=== PATIENT | female | born 1970 | race Caucasian/White ===

== ENCOUNTER → 2019-11-02 08:42 | Outpatient (BNVA) | payer SELFPAY | PROVIDERS: Visit Provider Nurse Practitioner Family | DX: I10 Essential (primary) hypertension (principal) | CPT/HCPCS: 36415; 85025 ==

== ENCOUNTER → 2019-11-02 10:17 | Outpatient (BNVA) | payer SELFPAY | PROVIDERS: Visit Provider Nurse Practitioner Family | DX: L40.9 Psoriasis, unspecified (principal); I10 Essential (primary) hypertension; E03.9 Hypothyroidism, unspecified; E78.2 Mixed hyperlipidemia; Z79.899 Other long term (current) drug therapy; L40.50 Arthropathic psoriasis, unspecified; E55.9 Vitamin D deficiency, unspecified | CPT/HCPCS: 80053; 80061; 82306; 83036; 84443 ==

== ENCOUNTER → 2020-04-22 15:04 | Outpatient (BNVA) | payer SELFPAY | PROVIDERS: Visit Provider Internal Medicine Rheumatology | DX: L40.0 Psoriasis vulgaris (principal); L40.50 Arthropathic psoriasis, unspecified; M06.09 Rheumatoid arthritis without rheumatoid factor, multiple sites; Z79.899 Other long term (current) drug therapy; L60.8 Other nail disorders | CPT/HCPCS: 99203; 99204 ==

== ENCOUNTER → 2020-04-30 10:13 | Outpatient (BNVA) | payer SELFPAY | PROVIDERS: Visit Provider Internal Medicine Rheumatology | DX: L40.50 Arthropathic psoriasis, unspecified (principal); Z79.899 Other long term (current) drug therapy | CPT/HCPCS: 80076; 82306; 82565; 85025; 85651; 86140; 86431; 86704; 86803; 87340 ==

== ENCOUNTER 2020-05-02 09:18 | Outpatient (CLI) | payer SELFPAY ==
--- NOTE | 2020-05-02 09:45 | XR_ITS ---
WS: [id number] Right hand, 3 views, 05/02/2020 Clinical Data: psoriatic arthritis Comparison: None. Findings: No fractures or dislocations are seen. The soft tissues are unremarkable. The joint space s are normal No periarticular demineralization or calcifications are seen. XR/XR hand RT min 3V* [id number] Impression: Negative right hand.
--- NOTE | 2020-05-02 09:45 | XR_ITS ---
WS: [id number] Right foot, 3 views, 05/02/2020 Clinical Data: psoriatic arthritis Comparison: None. Findings: No fractures or dislocations are seen. No bone destruction or erosion is noted. The joint spaces are normal. There is a small bunion at the head of the right first metatarsal. There is a needle which ramirez s fractured into 2 parts in the subcutaneous tissue of the right foot inferior to the proximal portio n of the fifth metatarsal. No periarticular demineralization or calcifications are seen. There is a p lantar spur. XR/XR foot RT min 3V* [id number] Impression: 1. Needle in the subcutaneous tissue inferior to the base of the right fifth me tatarsal. 2. Bunion at the head of the right first metatarsal.
--- NOTE | 2020-05-02 09:45 | XR_ITS ---
WS: [id number] Left foot, 3 views, 05/02/2020 Clinical Data: psoriatic arthritis Comparison: None. Findings: No fractures or dislocations are seen. No bone destruction or erosion is noted. The soft tissues are normal. There is a bunion at the head of the left first metatarsal. No periarticular demineralization or calc ification is seen. There is a plantar spur. XR/XR foot LT min 3V* [id number] Impression: Bunion at head of left first metatarsal.
--- NOTE | 2020-05-02 09:47 | XR_ITS ---
WS: [id number] Pelvis, AP view, 05/02/2020 Clinical Data: psoriatic arthritis Comparison: None. Findings: No fractures or dislocations are seen. The SI joints and pubic symphysis are intact. The soft tissues are not remarkable. There is degenerative disc narrowing at L4-L5. XR/XR pelvis 1-2V* [id number] Impression: Negative for fracture.
--- NOTE | 2020-05-02 09:47 | XR_ITS ---
WS: [id number] Chest 2 views, 05/02/2020 Clinical Data: psoriatic arthritis Comparison: None. Findings: No nodules, masses or effusions are seen. The heart is normal. The pulmonary vascularity is not increased. No pneumonia or pneumothorax is seen. XR/XR chest 2V* [id number] Impression: Negative chest.
--- NOTE | 2020-05-02 09:47 | XR_ITS ---
WS: [id number] Left hand, 3 views, 05/02/2020 Clinical Data: psoriatic arthritis Comparison: None. Findings: No fractures or dislocations are seen. The soft tissues are unremarkable. The joint spaces are normal No periarticular demineralization or calcifications are seen. There is a small density adjacent to th e ungual tuft of the distal phalanx of the left thumb which may represent a subcutaneous foreign body . XR/XR hand LT min 3V* [id number] Impression: Negative left hand.
== END 2020-05-02 09:19 | disposition home or self-care (01) ==
LOC: RAD 09:21 → RADWPI 09:45
PROVIDERS: Family Provider Nurse Practitioner Family; PCP Nurse Practitioner Family; Visit Provider Internal Medicine Rheumatology
DX: L40.50 Arthropathic psoriasis, unspecified (principal); M21.611 Bunion of right foot; M21.612 Bunion of left foot
CPT/HCPCS: 71046; 72170; 73130; 73630

== ENCOUNTER → 2020-08-14 15:21 | Outpatient (BNVA) | payer SELFPAY | PROVIDERS: Family Provider Nurse Practitioner Family; PCP Nurse Practitioner Family; Visit Provider Internal Medicine Rheumatology | DX: L40.50 Arthropathic psoriasis, unspecified (principal); L40.0 Psoriasis vulgaris; Z79.899 Other long term (current) drug therapy; L60.8 Other nail disorders | CPT/HCPCS: 36415; 80076; 82565; 85025; 85651; 86140; 99214 ==

== ENCOUNTER → 2020-10-13 13:48 | Outpatient (BNVA) | payer SELFPAY | PROVIDERS: Family Provider Nurse Practitioner Family; PCP Nurse Practitioner Family; Visit Provider Internal Medicine Rheumatology | DX: L40.50 Arthropathic psoriasis, unspecified (principal); L40.0 Psoriasis vulgaris; Z79.899 Other long term (current) drug therapy; M79.7 Fibromyalgia | CPT/HCPCS: 99214 ==

== ENCOUNTER → 2020-11-18 08:32 | Outpatient (BNVA) | payer SELFPAY | PROVIDERS: Family Provider Nurse Practitioner Family; PCP Nurse Practitioner Family; Visit Provider Nurse Practitioner Family | DX: K04.7 Periapical abscess without sinus (principal); L40.50 Arthropathic psoriasis, unspecified; Z79.899 Other long term (current) drug therapy | CPT/HCPCS: 80076; 82565; 85025; 86140 ==

== ENCOUNTER → 2021-03-10 08:15 | Outpatient (BNVA) | payer BC, SELFPAY | PROVIDERS: Family Provider Nurse Practitioner Family; PCP Nurse Practitioner Family; Visit Provider Internal Medicine Rheumatology | DX: L40.50 Arthropathic psoriasis, unspecified (principal); Z71.89 Other specified counseling; Z79.899 Other long term (current) drug therapy | CPT/HCPCS: 80076; 82565; 85025; 86140 ==

== ENCOUNTER → 2021-03-18 15:19 | Outpatient (BNVA) | payer BC, SELFPAY | PROVIDERS: Family Provider Nurse Practitioner Family; PCP Nurse Practitioner Family; Visit Provider Internal Medicine Rheumatology | DX: L40.50 Arthropathic psoriasis, unspecified (principal); L40.0 Psoriasis vulgaris; M79.7 Fibromyalgia; Z79.899 Other long term (current) drug therapy; Z71.89 Other specified counseling; F17.200 Nicotine dependence, unspecified, uncomplicated | CPT/HCPCS: 99214 ==

== ENCOUNTER → 2021-04-22 11:18 | Outpatient (BNVA) | payer BC, SELFPAY | PROVIDERS: Family Provider Nurse Practitioner Family; PCP Nurse Practitioner Family; Visit Provider Nurse Practitioner Family | DX: Z79.899 Other long term (current) drug therapy (principal); E03.9 Hypothyroidism, unspecified; E55.9 Vitamin D deficiency, unspecified; Z13.6 Encounter for screening for cardiovascular disorders; Z12.31 Encounter for screening mammogram for malignant neoplasm of breast; Z12.11 Encounter for screening for malignant neoplasm of colon; R51.9 Headache, unspecified | CPT/HCPCS: 80053; 80061; 81003; 82306; 82607; 83036; 83921; 84443 ==

== ENCOUNTER → 2021-05-27 09:07 | Outpatient (BNVA) | payer BC, SELFPAY | PROVIDERS: Family Provider Nurse Practitioner Family; PCP Nurse Practitioner Family; Visit Provider Internal Medicine | DX: Z01.812 Encounter for preprocedural laboratory examination (principal); Z12.11 Encounter for screening for malignant neoplasm of colon; Z20.822 Contact with and (suspected) exposure to COVID-19 | CPT/HCPCS: 87635 ==

== ENCOUNTER 2021-06-01 07:08 | Day surgery (SDC) | payer BC, SELFPAY ==
[2021-05-28 12:31] VITALS: BMI 40.9
--- NOTE | 2021-06-01 07:28 | ANES.PREANE2 ---
Pre-Anesthetic Assessment Pre-Anesthetic Assessment: Height/Weight: Height 1.65 m Weight 111.584 kg Preop Diagnosis: Screening average risk Proposed Procedure: Operation Date: 06/01/21 08:00 Proposed Procedures p Colonoscopy 65323 z12.11(Not Applicable) - Gokul Salgado MD Familial anesthetic complications: None Was Beta Shahab taken within 24 hours: N/A Was Clonidine taken within 24 hours: N/A Last intake: > 8 hrs Social: Social History: Tobacco and No alcohol Exam: Pre-Anes Outpt Exam: alert, oriented x 3, clear to auscultation bilaterally and regular rate & rhythm Airway: Cervical ROM: WNL MP: 3 Dentition: Full Pulmonary: Pulmonary: Asthma (inhaler prn for exertion or weather ) CV/HEM: CV/HEM: HTN GI: GI: GERD Metabolic: Metabolic: Morbid obesity and Thyroid Musc/skel: Musc/skel: RA (psoriatic arthritis) Anesthetic Plan: ASA status: 3 Anesthesia: MAC Risk of > 500 ml blood loss (7ml/kg in children): No PFSH Anesthesia PFSH: Medical History Acute bacterial sinusitis Breast cancer screening by mammogram Colon cancer screening Dactylitis of finger Essential hypertension Fibromyalgia High risk medication use Hypertension screen Hypothyroidism, acquired Immunization counseling Mild asthma Nail pitting Plaque psoriasis Psoriasis Psoriatic arthritis Vitamin D deficiency Social History Smoking and tobacco status: current every day smoker Data Anesthesia Cardiac Studies: No Data to Display
--- NOTE | 2021-06-01 07:29 | W.PM.OPSFHP ---
Same Day Surgery H&P Indication for Procedure/HPI DATE OF PROCEDURE: June 01, 2021 CHIEF COMPLAINT/INDICATIONFOR SURGICAL PROCEDURE: Routine screening average risk PREOP DIAGNOSIS: Screening average risk PLANNED PROCEDRUE: Operation Date: 06/01/21 08:00 Proposed Procedures p Colonoscopy 76372 z12.11(Not Applicable) - Gokul Salgado MD Medications/Allergies* Allergies/Adverse Reactions Allergy/AdvReac Type Severity Reaction Status Date / Time aspirin Allergy unknown Verified 05/28/21 12:39 latex Allergy unknown Verified 05/28/21 12:39 Pertinent History/Comorbid Conditions* Medical History (Updated 04/22/21 @ 16:24 by YASMANI Espinoza) Acute bacterial sinusitis Breast cancer screening by mammogram Colon cancer screening Dactylitis of finger Essential hypertension Fibromyalgia High risk medication use Hypertension screen Hypothyroidism, acquired Immunization counseling Mild asthma Nail pitting Plaque psoriasis Psoriasis Psoriatic arthritis Vitamin D deficiency Social History Smoking and tobacco status: current every day smoker Pertinent Exam Findings alert, oriented x 3, clear to auscultation bilaterally, regular rate & rhythm, operative site marked and procedure specific exam findings Recommendations Surgery/Procedure today Coding Level of Care Code Acute Postal Supervisor for Ish Yanes
[2021-06-01] MEDS: sodium chloride 0.9% 1,000 ML 30 ML IV (07:50)
[2021-06-01 08:13] VITALS: BP 104/78; PULSE 91; RESP 16; TEMP 36.6; O2SAT 92
[2021-06-01 08:27] VITALS: BP 95/77; PULSE 84; RESP 18; O2SAT 96
--- NOTE | 2021-06-01 18:51 | ANE.PACU2 ---
Inpatient post-anesthesia follow up: Airway intact: Yes Vital signs: Temperature 97.9 F Pulse Rate 84 Respiratory Rate 18 Blood Pressure 95/77 Pulse Oximetry 96 Oxygen Delivery Me thod Room Air Oxygen Flow Rate Fraction of Inspir ed Oxygen Hydration adequate: Yes Nausea and vomiting: No Pain level: 1 Mental status: Baseline
== END 2021-06-01 08:49 | disposition home or self-care (01) ==
PROVIDERS: PCP Nurse Practitioner Family; Visit Provider Internal Medicine
PROC: 0DJD8ZZ Inspection of Lower Intestinal Tract, Via Natural or Artificial Opening Endoscopic (ICD-10-PCS; CPT 45378; principal; 2021-06-01 08:00)
DX: Z12.11 Encounter for screening for malignant neoplasm of colon (principal); I10 Essential (primary) hypertension; M79.7 Fibromyalgia; E03.8 Other specified hypothyroidism; E55.9 Vitamin D deficiency, unspecified; F17.200 Nicotine dependence, unspecified, uncomplicated; Z88.6 Allergy status to analgesic agent; Z91.040 Latex allergy status
CPT/HCPCS: 45378; 96360; J2704; J7030

== ENCOUNTER 2021-06-10 14:02 | Outpatient (CLI) | payer BC, SELFPAY ==
--- NOTE | 2021-06-10 14:00 | MM_ITS ---
WS: [id number] BILATERAL SCREENING DIGITAL MAMMOGRAM WITH CAD HISTORY: Z12.31 - Encounter for screening mammogram for malignant ... COMPARISON: 06/21/2011 Bilateral CC and MLO views submitted. Computer aided detection analyzed. Breast composition: There are scattered areas of fibroglandular density. No suspicious masses, microc alcifications or architectural distortion. Numerous scattered calcifications within each breast. MM/[place] [id number] IMPRESSION: BI-RADS: 2-Benign FOLLOW UP: 1 Year Follow-up
== END 2021-06-10 14:03 | disposition home or self-care (01) ==
LOC: RADSHAW 14:08
PROVIDERS: PCP Nurse Practitioner Family; Visit Provider Nurse Practitioner Family
DX: Z12.31 Encounter for screening mammogram for malignant neoplasm of breast (principal)
CPT/HCPCS: 77067

== ENCOUNTER → 2021-06-29 10:23 | Outpatient (BNVA) | payer BC, SELFPAY | PROVIDERS: PCP Nurse Practitioner Family; Visit Provider Internal Medicine Rheumatology | DX: L40.50 Arthropathic psoriasis, unspecified (principal); Z79.899 Other long term (current) drug therapy; M19.90 Unspecified osteoarthritis, unspecified site; L40.0 Psoriasis vulgaris | CPT/HCPCS: 80076; 82565; 85025; 86140 ==

== ENCOUNTER → 2021-09-10 10:41 | Outpatient (BNVA) | payer BC, SELFPAY | PROVIDERS: PCP Nurse Practitioner Family; Visit Provider Nurse Practitioner Family | DX: R10.31 Right lower quadrant pain (principal) | CPT/HCPCS: 74018; 80053; 81003; 85025; 85651; 86140 ==

== ENCOUNTER 2021-10-08 13:18 | Outpatient (CLI) | payer BC, SELFPAY ==
[2021-10-08] MEDS: iohexol 300 mg/mL 100 mL Btl IV (13:57)
--- NOTE | 2021-10-08 15:00 | CT_ITS ---
WS: [id number] CT ABDOMEN PELVIS TECHNIQUE: Contrast-enhanced CT of the abdomen and pelvis with coronal and sagittal reformatted image s. CLINICAL INFORMATION: R10.31 - Right lower quadrant pain COMPARISON: None. DLP: 1993.[address] scans at [facility] use at least one of these dose optimization techniques: automated e xposure control; mA and/or kV adjustment per patient size (includes targeted exams where dose is matc hed to clinical indication); or iterative reconstruction. FINDINGS: Diffuse fatty infiltration of the liver. Normal gallbladder. Prior gastric banding. Small esophageal hiatal hernia. Splenic granulomas. Air-fluid level in the distal esophagus. Normal portal vein and sp lenic vein. Normal pancreas. Adrenal glands are normal. Normal renal parenchymal enhancement. No hydr onephrosis. Normal caliber abdominal aorta. Normal sigmoid colon. No evidence of high-grade small or large bowel obstruction. No evidence of acut e appendicitis. Lung bases are well aerated. Celiac and SMA are patent. No abdominal or pelvic lymph4 adenopathy. No inguinal lymphadenopathy. Grade 1 anterolisthesis L5 on S1 with complete loss of disc space height and endplate sclerosis. Chronic spondylolysis at this level. CT/CT abdomen pelvis w con* [id number] IMPRESSION: 1. Prior postoperative changes gastric banding with small esophageal hiatal he rnia. Air-fluid level in the distal esophagus. 2. Mild diffuse fatty infiltration of the liver. 3. Incidental fat-containing umbilical hernia. 4. No hydronephrosis in either kidney. 5. Grade 1 anterolisthesis L4 on L5 with chronic spondylolysis. Complete loss of disc space height at this level with endplate sclerosis.
== END 2021-10-08 13:19 | disposition home or self-care (01) ==
PROVIDERS: PCP Nurse Practitioner Family; Visit Provider Family Medicine
DX: R10.31 Right lower quadrant pain (principal); R19.03 Right lower quadrant abdominal swelling, mass and lump; Z98.890 Other specified postprocedural states; Z98.84 Bariatric surgery status; K44.9 Diaphragmatic hernia without obstruction or gangrene; K76.0 Fatty (change of) liver, not elsewhere classified; K42.9 Umbilical hernia without obstruction or gangrene; M47.816 Spondylosis without myelopathy or radiculopathy, lumbar region
CPT/HCPCS: 74177

== ENCOUNTER → 2021-10-26 16:32 | Outpatient (BNVA) | payer BC, SELFPAY | PROVIDERS: PCP Nurse Practitioner Family; Visit Provider Internal Medicine | DX: Z01.818 Encounter for other preprocedural examination (principal); R11.2 Nausea with vomiting, unspecified; R10.31 Right lower quadrant pain; Z20.822 Contact with and (suspected) exposure to COVID-19 | CPT/HCPCS: 87635 ==

== ENCOUNTER 2021-11-02 07:37 | Day surgery (SDC) | payer BC, SELFPAY ==
[2021-10-30 10:14] VITALS: BMI 39.6
--- NOTE | 2021-11-02 07:37 | W.PM.OPSFHP ---
Same Day Surgery H&P Indication for Procedure/HPI DATE OF PROCEDURE: November 02, 2021 CHIEF COMPLAINT/INDICATIONFOR SURGICAL PROCEDURE: Nausea and vomiting PREOP DIAGNOSIS: Screening average risk PLANNED PROCEDURE: Operation Date: 11/02/21 08:45 Proposed Procedures p [id number] R11.2(Not Applicable) - Gokul Salgado MD Medications/Allergies* Home Medications Medication Instructions Recorded Confirmed Type albuterol sulfate 90 mcg/actuation 2 puff INHALATION Q6H PRN 10/30/21 10/30/21 History aerosol inhaler clobetasol 0.05 % topical cream 1 applic TOPICAL DAILY PRN 10/30/21 10/30/21 History Allergies/Adverse Reactions Allergy/AdvReac Type Severity Reaction Status Date / Time aspirin Allergy unknown Verified 10/26/21 15:42 latex Allergy unknown Verified 10/26/21 15:42 Pertinent History/Comorbid Conditions* Medical History (Updated 10/26/21 @ 16:25 by Gokul Salgado MD) Acute bacterial sinusitis Breast cancer screening by mammogram Colon cancer screening Dactylitis of finger Essential hypertension Fibromyalgia High risk medication use Hypertension screen Hypothyroidism, acquired Immunization counseling Mild asthma Nail pitting Plaque psoriasis Psoriasis Psoriatic arthritis RLQ abdominal pain Vitamin D deficiency Social History Smoking and tobacco status: never smoked Pertinent Exam Findings alert, oriented x 3, clear to auscultation bilaterally, regular rate & rhythm, operative site marked and procedure specific exam findings Recommendations Surgery/Procedure today Coding Level of Care Code Acute Motor Vehicle Compliance Analyst for Ish Yanes
--- NOTE | 2021-11-02 07:45 | ANES.PREANE2 ---
Pre-Anesthetic Assessment Height/Weight: Height 1.65 m Weight 107.955 kg Preop Diagnosis: Nausea and vomiting. Operation Date: 11/02/21 08:45 Proposed Procedures p [id number] R11.2(Not Applicable) - Gokul Salgado MD Familial anesthetic complications: None Was Beta Shahab taken within 24 hours: N/A Was Clonidine taken within 24 hours: N/A Last intake: > 8hrs Social Tobacco and No alcohol Exam alert, oriented x 3, clear to auscultation bilaterally and regular rate & rhythm Airway Mallampati: Class III Dentition: other (missing) Pulmonary Asthma (exertion and stressed induced) CV/HEM Hypertension None reported Hepatic None reported GI None reported Metabolic Morbid Obesity and Thyroid Disease Musc/skel Lower Back Pain Psoriatic arthritis prednisone 5 mg daily Neuropsych None reported Anesthetic Plan ASA status: 3 Anesthesia: MAC Risk of > 500 ml blood loss (7ml/kg in children): No Medications/Allergies Home Medications Medication Instructions Recorded Confirmed Last Taken Type levothyroxine 88 mcg capsule 88 mcg PO DAILY 90 Days #90 cap 05/14/21 10/30/21 05/30/21 Rx duloxetine 60 mg capsule,delayed 60 mg PO DAILY #90 cap 09/01/21 10/30/21 Unknown Rx release leflunomide 20 mg tablet 20 mg PO DAILY #30 tab 09/01/21 10/30/21 Unknown Rx ondansetron HCl 4 mg tablet 4 mg PO Q6H PRN #30 tab 09/01/21 10/30/21 Unknown Rx (Zofran) pantoprazole 40 mg tablet,delayed 40 mg PO DAILY #90 tab 09/01/21 10/30/21 Unknown Rx release prednisone 5 mg tablet 5 mg PO DAILY #90 tab 09/01/21 10/30/21 Unknown Rx tofacitinib 5 mg tablet (Xeljanz) 5 mg PO BID #30 tab 09/01/21 10/30/21 Unknown Rx amlodipine 5 mg tablet See Rx Instructions .ROUTE 09/28/21 10/30/21 Unknown Rx .COMPLEX 90 Days #90 tab albuterol sulfate 90 mcg/actuation 2 puff INHALATION Q6H PRN 10/30/21 10/30/21 Unknown History aerosol inhaler clobetasol 0.05 % topical cream 1 applic TOPICAL DAILY PRN 10/30/21 10/30/21 Unknown History Allergies Allergy/AdvReac Type Severity Reaction Status Date / Time aspirin Allergy unknown Verified 10/26/21 15:42 latex Allergy unknown Verified 10/26/21 15:42 [facility] Anesthesia Medical History Acute bacterial sinusitis Breast cancer screening by mammogram Colon cancer screening Dactylitis of finger Essential hypertension Fibromyalgia High risk medication use Hypertension screen Hypothyroidism, acquired Immunization counseling Mild asthma Nail pitting Plaque psoriasis Psoriasis Psoriatic arthritis RLQ abdominal pain Vitamin D deficiency Social History Smoking and tobacco status: never smoked Data Anesthesia Cardiac Studies: No Data to Display
[2021-11-02 08:08] VITALS: BP 153/99; PULSE 86; RESP 18; TEMP 36.6; O2SAT 97
[2021-11-02] MEDS: sodium chloride 0.9% 1,000 ML 30 ML IV (08:22)
[2021-11-02 09:04] VITALS: BP 135/82; PULSE 73; RESP 16; TEMP 36.1; O2SAT 94
--- NOTE | 2021-11-02 09:07 | ANE.PACU2 ---
Inpatient post-anesthesia follow up: Airway intact: Yes Vital signs: Temperature 97 F Pulse Rate 73 Respiratory Rate 16 Blood Pressure 135/82 Pulse Oximetry 94 Oxygen Delivery Me thod Room Air Oxygen Flow Rate Fraction of Inspir ed Oxygen Hydration adequate: Yes Nausea and vomiting: No Pain level: 1 Mental status: Baseline
[2021-11-02 09:25] VITALS: BP 123/73; PULSE 73; RESP 18; O2SAT 94
== END 2021-11-02 09:33 | disposition home or self-care (01) ==
PROVIDERS: PCP Nurse Practitioner Family; Visit Provider Internal Medicine
PROC: 0DJ08ZZ Inspection of Upper Intestinal Tract, Via Natural or Artificial Opening Endoscopic (ICD-10-PCS; CPT 43235; principal; 2021-11-02 08:45)
DX: R11.2 Nausea with vomiting, unspecified (principal); K44.9 Diaphragmatic hernia without obstruction or gangrene; J45.909 Unspecified asthma, uncomplicated; E66.01 Morbid (severe) obesity due to excess calories; Z68.39 Body mass index [BMI] 39.0-39.9, adult; L40.50 Arthropathic psoriasis, unspecified; Z79.52 Long term (current) use of systemic steroids; I10 Essential (primary) hypertension; M79.7 Fibromyalgia; Z79.899 Other long term (current) drug therapy; E03.9 Hypothyroidism, unspecified
CPT/HCPCS: 43235; J2704; J7030

== ENCOUNTER → 2021-11-26 09:45 | Outpatient (BNVA) | payer BC, SELFPAY | PROVIDERS: PCP Nurse Practitioner Family; Referring Provider Internal Medicine Rheumatology; Visit Provider Orthopaedic Surgery | DX: M51.36 Other intervertebral disc degeneration, lumbar region (principal); M54.50 Low back pain, unspecified; G89.29 Other chronic pain; R20.0 Anesthesia of skin | CPT/HCPCS: 72110 ==

== ENCOUNTER 2021-12-22 13:56 | Outpatient (CLI) | payer BC, SELFPAY ==
--- NOTE | 2021-12-22 13:45 | MR_ITS ---
WS: [id number] MRI LUMBAR SPINE NONCONTRAST TECHNIQUE: Sagittal T1, T2 and STIR imaging. Axial T1 and T2 imaging. CLINICAL INFORMATION: pain COMPARISON: None. FINDINGS: Mild lumbar curve. Grade 1 anterolisthesis L4 on L5 with chronic spondylolysis. Grade 1 anterolisthes is measures 6 mm. Disc space narrowing L4-L5 with degenerative endplate edema advanced for patient th is age. L1-L2: Normal. L2-L3: Normal. L3-L4: No significant disc bulging. Moderate facet arthropathy with calcified RIGHT synovial cyst ward suring 10 mm impinges the RIGHT dorsal aspect of the thecal sac with mild central canal stenosis just below the L3-L4 interspace. Foramen are patent. L4-L5: Grade 1 anterolisthesis with chronic spondylolysis. Mild LEFT to RIGHT narrowing of the thecal sac. Moderate facet arthropathy. Moderate RIGHT and mild LEFT foraminal narrowing. L5-S1: No significant disc bulging. Spinal canal and foramen are patent. Visualized pelvic bony structures: Normal. Paravertebral soft tissues: Normal. MR/MR lumbar spine wo con* [id number] IMPRESSION: 1. Mild lumbar curve. No acute compression. 2. Grade 1 anterolisthesis L4 on L5 with chronic spondylolysis. Grade 1 omari listhesis measures 6 mm. 3. LEFT to RIGHT narrowing of the thecal sac at L4-L5 with moderate facet arth ropathy. Moderate RIGHT and mild LEFT foraminal narrowing at this level. 4. Disc space narrowing L4-L5 with degenerative endplate edema. 5. Moderate facet arthropathy L3-L4 with calcified RIGHT synovial cyst measuri ng 10 mm. RIGHT dorsal impingement on the thecal sac just below the L3-L4 inter space. 6. Moderate facet arthropathy L5-S1. 7. No other significant findings.
== END 2021-12-22 13:57 | disposition home or self-care (01) ==
PROVIDERS: PCP Nurse Practitioner Family; Visit Provider Orthopaedic Surgery
DX: M43.06 Spondylolysis, lumbar region (principal)
CPT/HCPCS: 72148

== ENCOUNTER 2022-01-11 16:39 | Inpatient (IN) | payer BC, SELFPAY ==
[2022-01-08 09:26] VITALS: BMI 37.8
--- NOTE | 2022-01-08 09:41 | P.ANESASSM_ITS ---
Pre-Anesthetic Assessment Height/Weight: Height 1.65 m Weight 102.965 kg Preop Diagnosis: Nausea and vomiting. Operation Date: 01/11/22 11:30 Proposed Procedures p Posterior Lumbar Interbody Fusion L4/5 [id number] M43.16(Not Applicable) - Romario Yeager, Familial anesthetic complications: none Social Tobacco and No alcohol Exam alert, oriented x 3, clear to auscultation bilaterally and regular rate & rhythm Airway Mallampati: Class III Dentition: other (missing molars) Pulmonary Asthma (exertional or seasonal allergy induced- albuterol 1x a day) CV/HEM Hypertension None reported Hepatic None reported GI Gastroesophageal Reflux Disease Metabolic Hyperlipidemia, Morbid Obesity and Thyroid Disease [facility] [place] Fibromyalgia psoriatic arthritis Neuropsych None reported Anesthetic Plan ASA status: 2 Anesthesia: General Risk of > 500 ml blood loss (7ml/kg in children): No Medications/Allergies Home Medications Medication Instructions Recorded Confirmed Last Taken Type levothyroxine 88 mcg capsule 88 mcg PO DAILY 90 Days #90 cap 05/14/21 01/08/22 11/01/21 Rx albuterol sulfate 90 mcg/actuation 2 puff INHALATION Q6H PRN 10/30/21 01/08/22 11/01/21 History aerosol inhaler clobetasol 0.05 % topical cream 1 applic TOPICAL DAILY PRN 10/30/21 01/08/22 1 Week Ago History ~10/26/21 guselkumab 100 mg/mL subcutaneous See Rx Instructions SUBCUT 12/31/21 01/08/22 Unknown Rx syringe (Tremfya) .COMPLEX #3 ml leflunomide 20 mg tablet 20 mg PO DAILY #30 tab 12/31/21 01/08/22 Unknown Rx amlodipine 5 mg tablet 5 mg PO QPM 01/08/22 01/08/22 Unknown History duloxetine 60 mg capsule,delayed 60 mg PO QPM 01/08/22 01/08/22 Unknown History release prednisone 5 mg tablet 5 mg PO QPM 01/08/22 01/08/22 Unknown History Allergies Allergy/AdvReac Type Severity Reaction Status Date / Time aspirin Allergy unknown Verified 11/26/21 09:45 latex Allergy unknown Verified 11/26/21 09:45 pantoprazole [From Protonix] Allergy ADR-Nausea Verified 01/08/22 09:20 tofacitinib [From Xeljanz] AdvReac Intermediate nausea and Verified 11/26/21 09:45 vomiting PFSH Anesthesia Medical History Acute bacterial sinusitis Breast cancer screening by mammogram Colon cancer screening Dactylitis of finger Essential hypertension Fibromyalgia High risk medication use Hypertension screen Hypothyroidism, acquired Immunization counseling Mild asthma Nail pitting Plaque psoriasis Psoriasis Psoriatic arthritis RLQ abdominal pain Vitamin D deficiency Social History Smoking and tobacco status: never smoked Data Anesthesia Cardiac Studies: No Data to Display
[2022-01-11] VITALS (29 sets, daily range): BP systolic 117–152; BP diastolic 78–116; PULSE 63–79; RESP 13–22; TEMP 36.4–36.7; O2SAT 91–100; BMI 37.8
--- NOTE | 2022-01-11 | SCC_ITS ---
Procedure done: 1. L4/5 Interbody fusion with posterolateral fusion 2. Instrumentation L4/5 3. Cage at L4/5 4. Laminectomy L4 5. use of autograft from same incision 6. allograft 7. Bone marrow aspirate from right iliac crest 8. computer navigation stereotactic spine 3 seconds of fluoroscopic guidance, for a cumulative dose of 54.3 mGy, was provided to Dr. Yeager by the radiology department. C-arm images of the lumbar spine were saved for the patient's permanent record. FERN
[2022-01-11] MEDS: sodium chloride 0.9% 1,000 ML 30 ML IV (10:54)
[2022-01-11 11:08] LABS: Basophils # 0.1 10^3/uL (0.0-0.1); Eosinophils # 0.2 10^3/uL (0.0-0.8); Eosinophils % 3.8 %; Hematocrit 44.1 % (37.0-47.0); Hemoglobin 14.9 g/dL (11.5-15.3); Lymphocytes # 1.3 10^3/uL (0.8-4.8); Mean Corpuscular HGB Conc 33.8 g/dL (30.0-36.0); Mean Corpuscular Hemoglobin 31.1 pg (28.0-34.0); Mean Corpuscular Volume 92.1 fl (81-99); Mean Platelet Volume 9.4 fL (7.4-10.4); Monocytes # 0.4 10^3/uL (0.2-0.9); Monocytes % 6.2 %; Neutrophils # 4.05 10^3/uL (1.8-7.7); Neutrophils % 67.7 %; Nucleated Red Blood Cells % 0 %; Platelet Count 296 10^3/cmm (130-400); Red Blood Count 4.79 10^6/uL (4.1-5.3); Red Cell Distribution Width 12.7 % (12.1-15.1)
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
--- NOTE | 2022-01-11 11:45 | P.ANESUD_ITS ---
Pre-Anesthetic Update Pre-Anesthetic Assessment: Date of Surgery/Procedure: 01/11/22 Preop Mary gnosis: Spondylolisthesis L4-5 with stenosis Proposed Procedure: Operation Date: 01/11/22 11:30 Proposed Procedures p Posterior Lumbar Interbody Fusion L4/5 [id number]/12474 M43.16(Not Applicable) - Romario Yeager, DO Any changes to Pre-Anesthetic Assessment?: No Last Intake: Intake Last Liquid Date 01/11/22 Last Liquid Time 04:00 Last Solid Date 01/10/22 Last Solid Time 21:00 Labs Last 48hrs: Short CBC 01/11/22 Range/Units 10:50 WBC 6.0 (4.0-10.0) 10^3/ uL Hgb 14.9 (11.5-15.3) g/dL Hct 44.1 (37.0-47.0) % MCV 92.1 (81-99) fl Plt Count 296 (130-400) 10^3/c mm Neut % (Auto) 67.7 % Neut # (Auto) 4.05 (1.8-7.7) 10^3/u L Blood Bank 01/11/22 10:50 Blood Type O Positive Rho(D) Type Positive Antibody Screen Negative Vitals: Temperature 98.0 F 01/11/22 10:42 Temperature Source Temporal Artery S can 01/11/22 10:42 Pulse Rate 77 01/11/22 10:42 Respiratory Rate 18 01/11/22 10:42 Blood Pressure 117/78 01/11/22 10:42 Blood Pressure Elina n 91 01/11/22 10:42 Pulse Oximetry 98 01/11/22 10:42 Oxygen Delivery Me thod 01/11/22 10:42 Exam: Pre-Anes Outpt Exam: alert, oriented x 3, clear to auscultation bilaterally and regular rate & rhythm Cardiac Studies: No Data to Display
--- NOTE | 2022-01-11 12:37 | XR_ITS ---
WS: [id number] INTRAOPERATIVE TECHNIQUE: 3 Spot fluoroscopic images for intraoperative purposes. FLUOROSCOPY TIME: 12 seconds CLINICAL INFORMATION: OR PICS COMPARISON: None. FINDINGS: Intraoperative changes pedicle screw fixation L4-L5 with interbody fusion graft. Slight anterolisthes is L4 on L5 has improved. XR/XR lumbar spine 1V 51215 IMPRESSION: Images obtained for intraoperative purposes.
[2022-01-11] MEDS: heparin, porcine 1,000 unit/mL INJ 10 mL 10000 UNIT IRRIGATION (13:16)
[2022-01-11] MEDS: vancomycin 1,000 MG SDV 1000 MG XX (13:17)
--- NOTE | 2022-01-11 14:22 | PM.OP ---
Operative Report Date of procedure: January 11, 2022 Pre-op diagnosis: Preop Diagnosis Spondylolisthesis L4-5 with stenosis Post-op diagnosis: same Procedure done: 1. L4/5 Interbody fusion with posterolateral fusion 2. Instrumentation L4/5 3. Cage at L4/5 4. Laminectomy L4 5. use of autograft from same incision 6. allograft 7. Bone marrow aspirate from right iliac crest 8. computer navigation stereotactic spine Surgeon: Romario Yeager Technical Writing Lead/Mgr: Carlos Whitehead Technical Writing Lead/Mgr: The leasing assistant, Carlos Whitehead, PAC was needed for his expertise under the microscope. He was important and necessary throughout the procedure to complete in a safe and timely manner. He assisted with patient positioning prepping and draping tissue retraction suctioning of the operative field protection of the dural sac and tissue closure Estimated blood loss (mL): 300 Procedure: 1. L4/5 Interbody fusion with posterolateral fusion 2. Instrumentation L4/5 3. Cage at L4/5 4. Laminectomy L4 5. use of autograft from same incision 6. allograft 7. Bone marrow aspirate from right iliac crest 8. computer navigation stereotactic spine Patient is brought to the operative suite. After undergoing anesthesia, the patient had neuro monitoring attached. Patient was then placed in the prone position on the Avel table. All areas of impingement were well-padded. Patient was then prepped and draped in the normal sterile fashion. Skin incision was then made over the L4/5 space. Subperiosteal dissection was made out to the transverse processes of L4 and L5. Once the exposure was complete attention was then brought to obtaining the bone marrow aspirate from the right iliac crest. The TruLeaf bone marrow aspirate kit was used to aspirate bone marrow aspirate. This was done by using the sharp probe to open up the bone. Aspiration was performed and then the blunt probe was then used to dissect down to through the bone tunnel. An aspirating well drawn back a millimeter approximately 20 cc of bone marrow aspirate was used. Admixed with the allograft and autograft bone that will be used. Was brought to placing the pins for the computer navigation. 2 pins were placed into the right iliac crest. These pins were removed after the computer navigation was done. And the case was over. The pins were drilled into the right iliac crest and then the fiducial for computer navigation was attached to these pins. The C-arm was brought in and information was linked from the pins to the computer and then this was used later for placing the pedicle screws. The technique for placing the pedicle screws was to use a drill followed by the gearshift probe linked to computer navigation Followed by the ball probe to feel the superior inferior medial lateral hernández of the pedicles. Then placement of the screws to computer navigation Was done at each pedicle. Screws were placed at L4 bilaterally and L5 bilaterally. Next attention was brought to performing the laminectomy ofL4. This was done using the high-speed bur Kerrisons and curettes. Once the lamina was removed and then attention was brought to performing a partial facetectomy on the contralateral side. This was done again using the high-speed bur curettes and Kerrisons. The ligamentum flavum was taken down bilaterally from L4 to L5. Attention was then brought to the facet on the ipsilateral side. The facet was taken down. The L5 nerve was decompressed as it passed around the L5 pedicle. The laminectomy was done for purposes of decompressing the nerve as well as placement of the cage. The L4 nerve was identified as it traversed through the L4/5 foramen. The thecal sac was identified and retracted. The L4/5 disc base was identified. Using a knife the disc base was opened. And then sequential jenny were placed. The first shaver was a 6 and the last shaver was a 8. Using a pituitary and down going curette the endplates were scraped and disc material was removed from the space. Once adequate decompression of the disc base was felt to be had. Osteoamp sponge was packed into the anterior aspect of the disc base. Then a size 8 cage from [employer] was placed after packing osteoamp into the cage. While placing the cage the thecal sac and L5 nerve was protected. C arm was used to ensure that the cages placed in the appropriate position. Attention was then brought to attaching the rods to the screws placed in the L4 and L5 bilaterally. Caps were torqued into position. Locking the construct in place. Wound was copiously irrigated and then attention was brought to decorticating the facets and transverse processes laterally. Bone that was taken down from the lamina was used along with osteoamp fibers and sponges were packed into the lateral gutters along the facet joints. This was done bilaterally. Wound was then closed in a layered fashion starting with the thoracolumbar fascia. 0-vicryl was used the sub cutaneous tissue was closed with 2-0 vicryl and skin with 4-0 monocryl. Glue was then used to seal the skin and a steril dressing was applied. Patient was then placed in the supine position. The endotracheal tube was removed and patient was transferred to the PACU in stable condition.
[2022-01-11] MEDS: HYDROmorphone 1 mg/mL INJ 1 mL 0.5 MG IVP ×3 (14:51→15:38)
[2022-01-11] MEDS: meperidine 50 mg/mL INJ 12.5 MG IVP (15:02)
--- NOTE | 2022-01-11 15:54 | SUR.PHASEI ---
1445 PT TO PACU 5 PT AWAKES VERBALIZED PAIN , PT RESTLESS TWISTING IN BED, PT MOVES ALL EXT TO COMMAND, IV TO LT FA #[id number] PATENT WITH NS 700ML UP AT MOD RATE SEE PAIN MED GIVEN, PT ID BRACELET TO LT WRIST , PT ID'D X 2 IDENTIFIERS, BILAT SCDS ON AND WORKING , PT DRESSING TO LOWER BACK D/I HEMAVAC DRAIN TO LOWER BACK INCISION DRAIN SPONGE D/I DRAIN COMPRESSED WITH 90 ML OF RED DRAINAGE NOTED AND EMPTIED, PT HAS A PERSAUD CATHETER WITH YELLOW CLEAR URINE TO TUBING AND BAG WITH SMALL AMT APPROX 50 ML IN BAG, STATLOCK TO RT INNER THIGH, NO TENSION OR DRAINAGE NOTED TO INSERTION SITE.
--- NOTE | 2022-01-11 15:59 | SUR.PHASEI ---
SEE EARLIER PAIN MEDS AND DEMEROL GIVEN FOR UNCONTROLLED SHIVERS, PT COVERED WITH WARM BLANKETS ON ARRIVAL TO PACU, MORE PLACED TO NECK AND LEGS FOR COMFORT, PT DOZING OFF AND ON NOW, PT STATES PAIN IS (BAD) WHEN AWAKENED BUT QUICKLY BACK TO SLEEP, FACE SCALE 2-3.
--- NOTE | 2022-01-11 16:01 | ANE.PACU2 ---
Inpatient post-anesthesia follow up: Airway intact: Yes Vital signs: Temperature 98.0 F Pulse Rate 67 Respiratory Rate 17 Blood Pressure 137/95 Pulse Oximetry 95 Oxygen Delivery Me thod Nasal Cannula Oxygen Flow Rate 3 Fraction of Inspir ed Oxygen Hydration adequate: Yes Nausea and vomiting: No Pain level: 3 Mental status: Baseline
--- NOTE | 2022-01-11 16:43 | SUR.PHASEI ---
PT REPOSITIONED TO LT SIDE, PILLOW TO BACK TO COMFORT, DRESSING D/I WITH DRAIN COMPRESSED, VSS PT AWAKES TO VOICE, PT HAS NO FAMILY IN WAITING ROOM, PT STATES HER FRIEND IS AT HOME AND SHE WILL CALL HER LATER. STILL WAITING FOR ROOM AND TO GIVE REPORT TO FLOOR NURSE.
[2022-01-11] MEDS: lactated ringers 1,000 ML 90 ML IV (17:39)
[2022-01-11] MEDS: duloxetine 60 mg Capsule PO (17:39)
[2022-01-11] MEDS: predniSONE 5 mg Tablet PO (17:39)
[2022-01-11] MEDS: docusate sodium 100 mg Capsule PO (17:39)
[2022-01-11] MEDS: amlodipine 5 mg Tablet PO (17:39)
[2022-01-11] MEDS: ketorolac 30 mg/mL INJ IVP (18:40)
[2022-01-11] MEDS: morphine 4 mg/mL SDV 1 mL 2 MG IVP (18:40)
[2022-01-11] MEDS: HYDROcodone-acetaminophen 5-325 mg Tablet PO (22:19)
[2022-01-12 02:00] VITALS: BP 117/74; PULSE 70; RESP 17; TEMP 37; O2SAT 90
[2022-01-12 04:00] VITALS: BP 128/83; PULSE 73; RESP 18; TEMP 37.2; O2SAT 95
[2022-01-12] MEDS: ketorolac 30 mg/mL INJ IVP (04:03)
[2022-01-12] MEDS: lactated ringers 1,000 ML 90 ML IV (04:08)
--- NOTE | 2022-01-12 04:44 | PC.NURSE ---
Pt lying in bed resting and talking to staff. Pts Hemovac drain compressed, patent and draining. Pts drsg to lower back dry and intact. Pts resp even and non-labored no distress noted. Pt c/o pain in lower back 8/10. Pt was given Toradol 30mg IVP prn pain. upon reassessment pt rated pain at 3/10 and tolerable. Pt had no further request at the present time. Call light in reach.
[2022-01-12] MEDS: enoxaparin 40 mg/0.4 mL Syringe SUBCUT (05:07)
[2022-01-12 07:43] VITALS: BP 135/81; PULSE 70; RESP 16; TEMP 36.7; O2SAT 94
--- NOTE | 2022-01-12 07:56 | P.PN_ITS ---
Subjective Subjective: POD 1 Patient resting comfortably. Reports mild back pain leg pain is improving. Denies any chest pain, shortness of breath or headaches. Vitals/I&O/Wt Last Vital Signs Temp 98.0 F 01/12/22 07:43 Pulse 70 01/12/22 07:43 Resp 16 01/12/22 07:43 BP 135/81 01/12/22 07:43 Pulse Ox 94 01/12/22 07:43 01/11/22 01/12/22 01/12/22 22:59 06:59 14:59 Intake Total 1120 / 1420 993.5 / 2413.5 Output Total 100 / 440 3150 / 3590 Balance 1020 / 980 -2156.5 / -1176.5 Weight last 48 hrs Weight 227 lb Physical Exam Narrative: Patient presents alert and oriented x3 with a good general appearance normal mood and affect. Normal coordination normal stability. Mild tenderness around the incisional site with the incision appear to be clean and dry with Hemovac intact.. No signs of erythema or drainage. No signs of infection. Patient denies any fevers or chills. 5/5 motor strength both lower extremities with negative straight leg raise bilaterally. Calves are supple no medial thigh tenderness. Pulses are 2+ at the dorsalis pedis and posterior tibial region. Good capillary refill throughout normal sensation light touch both lower extremities. Urinary Catheter Management: Sewell: Cath Placed During This Visit: yes Reason for Continuing Indwelling Catheter: Perioperative Use in Selected Surgeries Urinary Catheter Date of Insertion: 01/11/22 Urinary Catheter Time of Insertion: 12:35 Data : 01/11/22 10:50 A&P Assessment and plan (1) Status post lumbar spinal fusion: Physical therapy to work with mobilization. DC the Hemovac drain. Discharge home today once stable. Continue incentive spirometry at home for pulmonary toilet. We will see her back in the office in 1 week's time for a wound check or sooner if she is having problems she will call if there is questions. Status: Acute Attestations Medical Necessity Statement*: Discharge home later today. Coding Level of Care Code Acute Child Welfare Counselor for Ish Yanes Diagnoses Status post lumbar spinal fusion Z98.1
[2022-01-12] MEDS: docusate sodium 100 mg Capsule PO (09:34)
[2022-01-12] MEDS: levothyroxine 88 mcg Tablet PO (09:34)
--- NOTE | 2022-01-12 09:38 | PC.NURSE ---
Drain Surgical drain removed from left lower back, dressing applied, approx 10 ml of serofluid in container
[2022-01-12 10:10] VITALS: BP 135/81; PULSE 70; RESP 16; TEMP 36.7; O2SAT 94
--- NOTE | 2022-01-12 10:17 | PC.CHAP ---
Pastoral Care Encounter/Spiritual Assessment Type of Contact [] Declined perfume maker visit [] Patient/Family/Request visit [] Outpatient visit [] Follow-up visit [] Physician referral [] Code/Alert [x] Routine visit [] Staff referral [] Actively dying [] Patient sleeping [] Family support [] [] Out of room [] Palliative care [] [] Receiving care in room [] Pre-surgical visit [] Trauma [] Long length of stay [] ICU visit [] Other: Relational/Emotional Strength [x] Patient feels connected with others/family/visitors/staff [] Distress [] Loneliness/isolation [] Abandonment Spirituality of Patient [x] Person of Mary [] Attends Rastafarian of their Mary [x] Believes in Prayer [] Reads Bible or Jewish materials [] There are Spiritual issues to be addressed Clothing Supervisor Interventions [x] Prayer [x] Active listening [x] Non-anxious presence [x] Spiritual/emotional support [] Crisis/trauma care [] Spiritual counseling [] Bereavement support [] Provided bereavement packet [] Provided Bible/devotional materials [] Provided toy/stuffed animal, coloring book to patient or family member [] Provided Communion [] Anointing/[place] [] Salvation [] Completed spiritual assessment [] Other: Impact on Illness or Injury [] Angry [] Fearful [] Anxious [] Often cries [] Exhaustion [] Unable to work [] Unable to attend alevism [] Unable to walk/stand [] Unable to read [] Unable to drive [] Unable to eat/drink [] Unable to sleep [] Unable to be with family [] Patient intubated [] Other: Summary patient very happy feeling good very pleased with doctor Time spent with patient 10 min
--- NOTE | 2022-01-12 10:35 | PM.DCS ---
Discharge Providers Date of Admission: 01/11/22 16:39 Date of Discharge: January 12, 2022 Attending Provider at Admission: Romario Yeager DO Attending Provider at Discharge: Romario Yeager DO Primary Care Provider: YASMANI Calles Diagnoses at Discharge Discharge Diagnosis (1) Status post lumbar spinal fusion: Status: Acute Reason for Visit Reason for Visit: PLIF L4/5 18039/[id number]/2840/34541/99286/ M43.16 Hospital Course Hospital Course uneventful Physical Exam Urinary Catheter Management: Sewell: Cath Placed During This Visit: yes, but has since been removed by the nurse Reason for Continuing Indwelling Catheter: Decision to DC Catheter Urinary Catheter Date of Insertion: 01/11/22 Urinary Catheter Time of Insertion: 12:35 Date Urinary Catheter Removed: 01/12/22 Time Urinary Catheter Discontinued: 09:00 Discharge Data Studies Completed and Pending Completed Studies During Hospitalization Category Date Time Status XR lumbar spine 1V [id number] Routine Exams 01/11/22 12:37 Completed Radiology Impressions Lumbar Spine X-Ray 01/11/22 12:37 IMPRESSION: Images obtained for intraoperative purposes. Laboratory Results WBC 6.0 10^3/uL (4.0-10.0) 01/11/22 10:50 RBC 4.79 10^6/uL (4.1-5.3) 01/11/22 10:50 Hgb 14.9 g/dL (11.5-15.3) 01/11/22 10:50 Hct 44.1 % (37.0-47.0) 01/11/22 10:50 MCV 92.1 fl (81-99) 01/11/22 10:50 MCH 31.1 pg (28.0-34.0) 01/11/22 10:50 MCHC 33.8 g/dL (30.0-36.0) 01/11/22 10:50 RDW 12.7 % (12.1-15.1) 01/11/22 10:50 Plt Count 296 10^3/cmm (130-400) 01/11/22 10:50 MPV 9.4 fL (7.4-10.4) 01/11/22 10:50 Neut % (Auto) 67.7 % 01/11/22 10:50 Lymph % (Auto) 21.0 % 01/11/22 10:50 Colbert % (Auto) 6.2 % 01/11/22 10:50 Eos % (Auto) 3.8 % 01/11/22 10:50 Baso % (Auto) 1.0 % 01/11/22 10:50 Neut # (Auto) 4.05 10^3/uL (1.8-7.7) 01/11/22 10:50 Lymph # (Auto) 1.3 10^3/uL (0.8-4.8) 01/11/22 10:50 Colbert # (Auto) 0.4 10^3/uL (0.2-0.9) 01/11/22 10:50 Eos # (Auto) 0.2 10^3/uL (0.0-0.8) 01/11/22 10:50 Baso # (Auto) 0.1 10^3/uL (0.0-0.1) 01/11/22 10:50 Nucleated RBC % (auto) 0 % 01/11/22 10:50 Nucleated RBCs # 0.0 /100WBC 01/11/22 10:50 Blood Type O Positive 01/11/22 10:50 Rho(D) Type Positive 01/11/22 10:50 Antibody Screen Negative 01/11/22 10:50 Vitals Last Vital Signs Temp 98.0 F 01/12/22 10:10 Pulse 70 01/12/22 10:10 Resp 16 01/12/22 10:10 BP 135/81 01/12/22 10:10 Pulse Ox 94 01/12/22 10:10 Discharge Plan Discharge Patient Disposition: Home Condition: Stable Prescriptions: New hydrocodone-acetaminophen 5-325 mg Tablet 1 - 2 tab PO Q4H PRN (Reason: Moderate To Severe Pain) Qty: 40 0RF Continued levothyroxine 88 mcg capsule 88 mcg PO DAILY 90 Days Qty: 90 1RF Tremfya 100 mg/mL syringe See Rx Instructions SUBCUT .COMPLEX Qty: 3 0RF Rx Instructions: SUBCUT starter dose...100mg SQ inj at week 0, week 4 then thereafter inj will be every 8 weeks; leflunomide 20 mg tablet 20 mg PO DAILY Qty: 30 3RF prednisone 5 mg tablet 5 mg PO QPM 0RF amlodipine 5 mg tablet 5 mg PO QPM 0RF duloxetine 60 mg capsule,delayed release(DR/EC) 60 mg PO QPM 0RF clobetasol 0.05 % cream 1 applic TOPICAL DAILY PRN (Reason: psorosis) 0RF albuterol sulfate 90 mcg/actuation HFA aerosol inhaler 2 puff inhalation Q6H PRN (Reason: Shortness Of Breath) 0RF Discharge Orders: Discharge Order (Routine); Ordered 01/12/22 Ordered By: Carlos Whitehead Referrals: Romario Yeager DO [Physician] - 01/19/22 10:45 am Discharge Diet: Advance as tolerated Patient Instructions: Anterior Posterior Spinal Fusion (DC), Spondylolisthesis (GEN), Opioid Safety, Post Anesthesia Care Activity Restrictions/Additional Instructions: Thank you for choosing [facility] for your care! The following is a list of instructions, from your provider, to follow upon your discharge to ensure you have the optimal recovery from your recent injury or surgery. Follow-up care is a loco part of your treatment and safety. Be sure to make and go to all appointments and call your doctor if you are having problems. If you do not already have a follow-up appointment made, call Dr. Yeager's] office in the next 1-3 days to make follow up appointment for 1 weeks at [phone]. It is also a good idea to know your test results and keep a list of the medicines you take. Medications will be prescribed for you at your provider's discretion. These medications are to be used as instructed; if they are taken more often that prescribed they will not be refilled early and in most cases will not be refilled at all. > When a refill is needed, you should contact catherine guzmán 2-3 business days before your prescription runs out. Medications will NOT be refilled by science education professor providers after hours! > Many pain medications contain Tylenol (Acetaminophen). Do not consume more than 4,000 mg of Tylenol per day in total with any combination of medications. > Pain medications can cause constipation. Please use an over the counter stool softener as directed, while taking pain medications. Consult your local pharmacist with questions or recommendations on stool softeners. If constipation persists, contact our office or your primary care provider. > While under our care, you are not to receive pain medications or other controlled substances from any other provider unless our office is notified and approves. Any attempts to do so will result in refusal to prescribe any further pain medications and possible dismissal from our practice. ? Walking is essential for the healing process after surgery. We would like you to slowly advance your walking. This should be done on relatively flat clear ground (inside or out) or can be done on a treadmill. Remember this goal does not have to happen all at once, slowly increase your distance and duration. This can be broken into more more than one walk per day as tolerated. Patients who walk as directed after surgery rarely require Physical Therapy. In the unlikely event this issue arises your provider will direct hospital staff to make the appropriate arrangements. ? No lifting over 5 pounds {a gallon of milk) or bending/twisting until further notice. Each of these activities places an unnecessary amount of stress onto the body and can impede the delicate healing process. > Instead of bending at the waist, keep your back straight and bend at the knees. > Instead of twisting your torso, keep your back straight and turn your entire body with your feet. ? You may sleep in any position which makes you comfortable. Many patients find comfort sleeping in a reclining chair. It is not abnormal to have difficulty sleeping for the first several weeks following your surgery. We recommend trying Benadry! or Tylenol PM as directed to help with your sleeping difficulties. Both medications are over the counter and available without prescription. ? NO SMOKING!!! Smoking dramatically increases the probability of developing postoperative wound infections. ? Common complaints after lumbar and/or thoracic spine surgery include, but are not limited to: numbness and/or tingling in the legs, pain around the incision and surrounding tissues, muscle spasms, or stiffness of the middle to low back. Contact our office if these symptoms persist or if an acute change occurs. ? No driving for the first 3-5days, and not while taking narcotics until seen at your follow-up appointment and cleared. There are no restrictions for riding on short trips, however if you take a longer trip, arrangements should be made to make regular stops to get out of the vehicle and stretch . ? Swelling is an unfortunate event that will take place with any surgery and is the primary source of your postoperative discomfort. While walking and regular approved activities helps control inflammation, there are additional steps you can take to minimize swelling. > Place ice over the surgical site and surrounding tissue for twenty minutes, followed by applying a low/medium heat (heating pad) for an additional twenty minutes every 1-2 hours as needed for painrelief. > You may use of over the counter anti-inflammatory medications (Ibuprofen, Motrin, Aleve, Advil, etc) as directed on the package label. These types of medicines will significantly reduce the amount of discomfort you experience after surgery from swelling. It should be noted that if you have and allergy to any of these medications, or a history of ulcers or kidney disease you should consult you primary care provider prior to starting these medications. Discharge Attestations Time Spent in Discharge Care*: less than 30 min Quality Metrics Clinical Quality Measures [ No reported AMI, CVA or VTE this stay] Coding Level of Care Code Acute [facility] note Diagnoses Status post lumbar spinal fusion Z98.1
== END 2022-01-12 11:05 | disposition home or self-care (01) | DRG 455 ==
LOC: MEDSURG 01-12 08:05
PROVIDERS: Anesthesiology; Admitting Provider Orthopaedic Surgery; PCP Nurse Practitioner Family; Visit Provider Orthopaedic Surgery
PROC: 0SG00AJ Fusion of Lumbar Vertebral Joint with Interbody Fusion Device, Posterior Approach, Anterior Column, Open Approach (ICD-10-PCS; CPT 22612; principal; 2022-01-11 11:30)
DX: M43.16 Spondylolisthesis, lumbar region (principal); E03.9 Hypothyroidism, unspecified; L40.50 Arthropathic psoriasis, unspecified
CPT/HCPCS: 36415; 51702; 72020; 76000; 85025; 86850; 86900; 96372; 97161; 97530; C1713; J0330; J1100; J1170; J1644; J1650; J1885; J2175; J2270; J2405; J2704; J3010; J3370; J3490; J7030; J7512

== ENCOUNTER → 2022-02-17 00:01 | Outpatient (BNVA) | payer BC, SELFPAY | PROVIDERS: PCP Nurse Practitioner Family; Visit Provider Nurse Practitioner Family | DX: E03.9 Hypothyroidism, unspecified (principal); L40.9 Psoriasis, unspecified | CPT/HCPCS: 84443 ==

== ENCOUNTER → 2022-02-23 10:41 | Outpatient (BNVA) | payer BC, SELFPAY | PROVIDERS: PCP Nurse Practitioner Family; Visit Provider Orthopaedic Surgery | DX: Z98.1 Arthrodesis status (principal) | CPT/HCPCS: 72100 ==

== ENCOUNTER → 2022-03-10 10:50 | Outpatient (BNVA) | payer BC, SELFPAY | PROVIDERS: PCP Nurse Practitioner Family; Visit Provider Internal Medicine Rheumatology | DX: Z79.899 Other long term (current) drug therapy (principal); L40.50 Arthropathic psoriasis, unspecified | CPT/HCPCS: 80076; 82565; 85025; 86140 ==

== ENCOUNTER → 2022-04-27 15:02 | Outpatient (BNVA) | payer BC, SELFPAY | PROVIDERS: PCP Nurse Practitioner Family; Visit Provider Physician Assistant | DX: Z47.89 Encounter for other orthopedic aftercare (principal); Z98.1 Arthrodesis status | CPT/HCPCS: 72100 ==

== ENCOUNTER → 2022-05-25 15:40 | Outpatient (BNVA) | payer MEDICAID, SELFPAY | PROVIDERS: PCP Nurse Practitioner Family; Visit Provider Physician Assistant | DX: Z47.89 Encounter for other orthopedic aftercare (principal); Z98.1 Arthrodesis status | CPT/HCPCS: 72100; 81000 ==

== ENCOUNTER → 2022-06-07 11:46 | Outpatient (BNVA) | payer MEDICAID, SELFPAY | PROVIDERS: PCP Nurse Practitioner Family; Visit Provider Internal Medicine Rheumatology | DX: Z79.899 Other long term (current) drug therapy (principal); L40.50 Arthropathic psoriasis, unspecified; L40.0 Psoriasis vulgaris | CPT/HCPCS: 36415; 80076; 82565; 85025; 86140 ==

== ENCOUNTER → 2022-07-27 13:59 | Outpatient (BNVA) | payer MEDICAID, SELFPAY | PROVIDERS: PCP Nurse Practitioner Family; Visit Provider Physician Assistant | DX: Z98.1 Arthrodesis status (principal) | CPT/HCPCS: 72100 ==

== ENCOUNTER → 2022-08-23 08:16 | Outpatient (BNVA) | payer BC, MEDICAID, SELFPAY | PROVIDERS: PCP Nurse Practitioner Family; Visit Provider Nurse Practitioner Family | DX: L40.0 Psoriasis vulgaris (principal) | CPT/HCPCS: 80053; 85025; 86705; 86706; 86709; 86803; 87340; 87806 ==

== ENCOUNTER 2022-11-03 15:06 | Outpatient (CLI) | payer BC, MEDICAID, SELFPAY ==
--- NOTE | 2022-11-03 15:30 | CT_ITS ---
WS: [id number] CT HEAD NONCONTRAST HISTORY: R29.6 - Repeated falls TECHNIQUE: Contiguous axial imaging performed through the brain in 2.5 mm imaging. Bone and soft tiss ue windows. Sagittal and coronal reformats reviewed. All CT scans at [facility] use at least one of these dose optimization techniques: automated exposure control; mA and/or kV adjustment per pa tient size (includes targeted exams where dose is matched to clinical indication); or iterative recon struction. DLP: 1082.58 mGy.cm COMPARISON: None available. No acute intracranial hemorrhage, midline shift or mass effect. No atrophy or prior infarcts or herniation. Ventricles: Normal size with no hydrocephalus. No inferior displacement of cerebellar tonsils. Paranasal sinuses: As visualized are clear. Mastoid air cells: Well pneumatized. Calvarium and scalp: Skull is intact with no soft tissue edema or swelling. CT/CT head wo con* [id number] IMPRESSION: Negative head CT.
== END 2022-11-03 15:07 | disposition home or self-care (01) ==
LOC: RAD 15:09
PROVIDERS: PCP Nurse Practitioner Family; Visit Provider Nurse Practitioner Family
DX: R29.6 Repeated falls (principal); R51.9 Headache, unspecified; G89.29 Other chronic pain
CPT/HCPCS: 70450

== ENCOUNTER 2022-11-23 14:04 | Oncology outpatient (recurring) (ONCR) | payer BC, MEDICAID, SELFPAY ==
[2022-11-09] MEDS: sodium chloride 0.9% 250 ML 75 ML IV (14:41)
[2022-11-09 14:43] LABS: Basophils % 0.6 %; Eosinophils # 0.2 10^3/uL (0.0-0.8); Eosinophils % 3.4 %; Hematocrit 47.3 % (37.0-47.0); Hemoglobin 16.1 g/dL (11.5-15.3); Lymphocytes # 1.4 10^3/uL (0.8-4.8); Lymphocytes % 21.2 %; Mean Corpuscular Hemoglobin 33.1 pg (28.0-34.0); Mean Corpuscular Volume 97.3 fl (81-99); Mean Platelet Volume 9.6 fL (7.4-10.4); Monocytes # 0.4 10^3/uL (0.2-0.9); Monocytes % 6.8 %; Neutrophils # 4.38 10^3/uL (1.8-7.7); Neutrophils % 67.8 %; Nucleated Red Blood Cells % 0 %; Platelet Count 255 10^3/cmm (130-400); Red Blood Count 4.86 10^6/uL (4.1-5.3); Red Cell Distribution Width 12.8 % (12.1-15.1); White Blood Count 6.5 10^3/uL (4.0-10.0)
[2022-11-09] MEDS: diphenhydrAMINE 50 mg/mL SDV 1mL 25 MG IVP (14:45)
[2022-11-09] MEDS: acetaminophen 325 mg Tablet 650 MG PO (14:46)
[2022-11-09 14:48] LABS: Erythrocyte Sedimentation Rate 25 mm/hr (0-15)
[2022-11-09 14:50] VITALS: BP 130/86; PULSE 67; RESP 18; TEMP 36.6; O2SAT 95
[2022-11-09 14:59] LABS: Alanine Aminotransferase 16 U/L (0-33); Albumin Level 4.7 g/dL (3.5-5.2); Alkaline Phosphatase 95 U/L (35-105); Aspartate Amino Transferase 23 U/L (0-32); Globulin 3.1 g/dL (1.3-4.6); Total Bilirubin 0.3 mg/dL (0.15-1.2); Total Protein 7.8 g/dL (6.6-8.7)
[2022-11-09] MEDS: abatacept 500 MG in sodium chloride 0.9% (100 ml) 100 ML 200 MG IV (15:22)
[2022-11-09 16:18] VITALS: BP 120/78; PULSE 84; RESP 18; TEMP 36.4; O2SAT 98
[2022-11-23 14:00] VITALS: BP 125/83; PULSE 83; RESP 18; TEMP 36.9; O2SAT 97
[2022-11-23] MEDS: sodium chloride 0.9% 250 ML 75 ML IV (14:20)
[2022-11-23] MEDS: acetaminophen 325 mg Tablet 650 MG PO (14:22)
[2022-11-23] MEDS: diphenhydrAMINE 50 mg/mL SDV 1mL 25 MG IVP (14:22)
[2022-11-23] MEDS: abatacept 500 MG in sodium chloride 0.9% (100 ml) 100 ML 200 MG IV (14:48)
[2022-11-23 15:30] VITALS: BP 125/86; PULSE 69; RESP 18; TEMP 36.4; O2SAT 96
== END 2022-11-28 23:59 | disposition home or self-care (01) ==
PROVIDERS: PCP Nurse Practitioner Family; Visit Provider Internal Medicine Rheumatology
DX: L40.50 Arthropathic psoriasis, unspecified (principal)
CPT/HCPCS: 72100; 80076; 82565; 85025; 85651; 96365; 96375; 96413; J0129; J1200; J2920; J7050

== ENCOUNTER 2022-12-07 14:05 | Oncology outpatient (recurring) (ONCR) | payer BC, MEDICAID, SELFPAY ==
--- NOTE | 2022-11-30 10:12 | PC.NURSE ---
11/09/22 infusion of abacept completed 1600. Inessa Harper RN
[2022-12-07] MEDS: acetaminophen 325 mg Tablet 650 MG PO (14:33)
[2022-12-07] MEDS: diphenhydrAMINE 50 mg/mL SDV 1mL 25 MG IVP (14:35)
[2022-12-07] MEDS: sodium chloride 0.9% 250 ML 75 ML IV (14:35)
[2022-12-07] MEDS: abatacept 500 MG in sodium chloride 0.9% (100 ml) 100 ML 200 MG IV ×2 (14:52→14:55)
== END 2022-12-29 23:59 | disposition home or self-care (01) ==
LOC: ONCMED 14:05
PROVIDERS: PCP Nurse Practitioner Family; Visit Provider Internal Medicine Rheumatology
DX: L40.50 Arthropathic psoriasis, unspecified (principal)
CPT/HCPCS: 96365; 96375; 96409; J0129; J1100; J1200; J7050

== ENCOUNTER 2022-12-15 20:00 | Outpatient (CLI) | payer BC, MEDICAID, SELFPAY | END 2022-12-15 20:01 | disposition home or self-care (01) | LOC: SLEEP 12-16 05:30 | PROVIDERS: PCP Nurse Practitioner Family; Visit Provider Nurse Practitioner Family | DX: G47.30 Sleep apnea, unspecified (principal) | CPT/HCPCS: 95810 ==

== ENCOUNTER → 2023-01-04 11:31 | Outpatient (BNVA) | payer BC, MEDICAID, SELFPAY | PROVIDERS: PCP Nurse Practitioner Family; Visit Provider Nurse Practitioner Family | DX: L40.9 Psoriasis, unspecified (principal) | CPT/HCPCS: 86038 ==

== ENCOUNTER 2023-01-06 14:00 | Oncology outpatient (recurring) (ONCR) | payer BC, MEDICAID, SELFPAY ==
[2023-01-06] MEDS: acetaminophen 325 mg Tablet 650 MG PO (15:05)
[2023-01-06] MEDS: sodium chloride 0.9% 250 ML 100 ML IV (15:05)
[2023-01-06] MEDS: diphenhydrAMINE 50 mg/mL SDV 1mL 25 MG IVP (15:06)
[2023-01-06] MEDS: dexamethasone 10 mg/mL INJ 6 MG IVP (15:12)
[2023-01-06] MEDS: abatacept 500 MG in sodium chloride 0.9% (100 ml) 100 ML 200 MG IV (15:33)
[2023-01-06 16:30] VITALS: BP 122/70; PULSE 63; TEMP 36.6; O2SAT 99
== END 2023-01-28 23:59 | disposition home or self-care (01) ==
PROVIDERS: PCP Nurse Practitioner Family; Visit Provider Internal Medicine Rheumatology
DX: L40.50 Arthropathic psoriasis, unspecified (principal)
CPT/HCPCS: 96365; 96375; J0129; J1100; J1200; J7050

== ENCOUNTER 2023-02-03 13:49 | Oncology outpatient (recurring) (ONCR) | payer BC, MEDICAID, SELFPAY ==
[2023-02-03 13:59] VITALS: BMI 33.4
[2023-02-03 14:20] LABS: Basophils # 0.1 10^3/uL (0.0-0.1); Basophils % 0.9 %; Eosinophils # 0.2 10^3/uL (0.0-0.8); Eosinophils % 2.7 %; Lymphocytes # 1.6 10^3/uL (0.8-4.8); Lymphocytes % 29.5 %; Mean Corpuscular HGB Conc 33.3 g/dL (30.0-36.0); Mean Corpuscular Hemoglobin 32.8 pg (28.0-34.0); Mean Corpuscular Volume 98.5 fl (81-99); Mean Platelet Volume 9.1 fL (7.4-10.4); Monocytes # 0.4 10^3/uL (0.2-0.9); Neutrophils # 3.26 10^3/uL (1.8-7.7); Neutrophils % 59.7 %; Nucleated Red Blood Cells % 0 %; Platelet Count 271 10^3/cmm (130-400); Red Blood Count 4.57 10^6/uL (4.1-5.3); Red Cell Distribution Width 12.6 % (12.1-15.1); White Blood Count 5.5 10^3/uL (4.0-10.0)
[2023-02-03 14:27] LABS: Erythrocyte Sedimentation Rate 3 mm/hr (0-15)
[2023-02-03] MEDS: sodium chloride 0.9% 250 ML 75 ML IV (14:32)
[2023-02-03] MEDS: acetaminophen 325 mg Tablet 650 MG PO (14:35)
[2023-02-03] MEDS: diphenhydrAMINE 50 mg/mL SDV 1mL 25 MG IVP (14:37)
[2023-02-03 14:39] LABS: Alanine Aminotransferase 13 U/L (0-33); Albumin Level 4.1 g/dL (3.5-5.2); Alkaline Phosphatase 74 U/L (35-105); Aspartate Amino Transferase 20 U/L (0-32); Globulin 2.3 g/dL (1.3-4.6); Glomerular Filtration Rate 87.9 mL/min (90-130); Total Bilirubin 0.3 mg/dL (0.15-1.2); Total Protein 6.4 g/dL (6.6-8.7)
[2023-02-03] MEDS: dexamethasone 10 mg/mL INJ 6 MG IVP (14:44)
[2023-02-03] MEDS: abatacept 500 MG in sodium chloride 0.9% (100 ml) 100 ML 200 MG IV (14:58)
[2023-02-03 16:15] VITALS: BP 113/78; PULSE 60; RESP 18; TEMP 36.2; O2SAT 98
== END 2023-02-28 23:59 | disposition home or self-care (01) ==
PROVIDERS: PCP Nurse Practitioner Family; Visit Provider Internal Medicine Rheumatology
DX: L40.50 Arthropathic psoriasis, unspecified (principal)
CPT/HCPCS: 80076; 82565; 85025; 85651; 96361; 96375; 96413; J0129; J1100; J1200; J7050

== ENCOUNTER 2023-03-03 14:03 | Oncology outpatient (recurring) (ONCR) | payer BC, MEDICAID, SELFPAY ==
[2023-03-03 14:21] VITALS: BP 132/85; PULSE 71; RESP 17; TEMP 36.7; O2SAT 98
[2023-03-03] MEDS: sodium chloride 0.9% 250 ML 100 ML IV (15:13)
[2023-03-03] MEDS: methylPREDNISolone sod succ 40 mg SDV IVP (15:15)
[2023-03-03] MEDS: acetaminophen 325 mg Tablet 650 MG PO (15:15)
[2023-03-03] MEDS: diphenhydrAMINE 50 mg/mL SDV 1mL 25 MG IVP (15:24)
[2023-03-03] MEDS: abatacept 1,000 MG in sodium chloride 0.9% (100 ml) 100 ML 200 MG IV (15:43)
[2023-03-03 16:14] VITALS: BP 135/86; PULSE 62; TEMP 36.9; O2SAT 92
== END 2023-03-31 23:59 | disposition home or self-care (01) ==
PROVIDERS: PCP Nurse Practitioner Family; Visit Provider Internal Medicine Rheumatology
DX: L40.50 Arthropathic psoriasis, unspecified (principal)
CPT/HCPCS: 96375; 96413; J0129; J1200; J2920; J7050

== ENCOUNTER 2023-03-09 06:56 | Outpatient (CLI) | payer BC, MEDICAID, SELFPAY ==
--- NOTE | 2023-03-09 07:15 | MR_ITS ---
WS: [id number] MRI BRAIN WITH AND WITHOUT CONTRAST HISTORY: G35 - Multiple sclerosis COMPARISON: None available. TECHNIQUE: Multiplanar imaging performed through the brain with MultiHance 20 ml's IV. No acute infarcts are seen. Seaman-white matter differentiation is well preserved. No significant atrop hy. No pericallosal white matter abnormalities. No temporal lobe abnormality. No susceptibility artifacts or prior lacunar infarcts. Ventricles and extra-axial spaces are normal. Clivus and pituitary gland are normal. Visualized posterior fossa and brainstem are also normal. Postcontrast images are negative for masses or vascular malformations. Dural venous sinuses are normal. Paranasal sinuses: Well aerated with no significant disease. Mastoid air cells: Normal. Calvarium and scalp: Normal. IMPRESSION: 1. Normal MRI brain with contrast.
[2023-03-09] MEDS: gadobenate dimeglumine 20 mL vial IV (07:47)
== END 2023-03-09 06:57 | disposition home or self-care (01) ==
PROVIDERS: PCP Nurse Practitioner Family; Visit Provider Internal Medicine Rheumatology
DX: G35 Multiple sclerosis (principal); G43.109 Migraine with aura, not intractable, without status migrainosus; R29.6 Repeated falls
CPT/HCPCS: 70553; A9577

== ENCOUNTER 2023-04-14 14:49 | Outpatient (CLI) | payer BC, MEDICAID, SELFPAY ==
[2023-04-16 13:35] LABS: Quantiferon Mitogen 9.92 IU/mL; Quantiferon Nil 0.02 IU/mL; Quantiferon Plus TB1 0.01 IU/mL; Quantiferon Plus TB2 0.01 IU/mL; Quantiferon TB Gold NEGATIVE (NEGATIVE)
== END 2023-04-14 14:50 | disposition home or self-care (01) ==
PROVIDERS: PCP Nurse Practitioner Family; Referring Provider Dermatology; Visit Provider Internal Medicine Rheumatology
DX: Z11.1 Encounter for screening for respiratory tuberculosis (principal)
CPT/HCPCS: 36415; 86480

== ENCOUNTER 2023-04-14 17:19 | Outpatient (CLI) | payer BC, MEDICAID, SELFPAY ==
[2023-04-14 17:41] LABS: Basophils % 0.6 %; Eosinophils # 0.1 10^3/uL (0.0-0.8); Eosinophils % 2.4 %; Hematocrit 42.7 % (36-47); Lymphocytes # 1.4 10^3/uL (0.8-4.8); Lymphocytes % 27.3 %; Mean Corpuscular HGB Conc 33.7 g/dL (30-55); Mean Corpuscular Hemoglobin 32.8 pg (27-33); Mean Corpuscular Volume 97.3 fl (85-98); Mean Platelet Volume 9.6 fL (7.4-10.4); Monocytes # 0.5 10^3/uL (0.2-0.9); Monocytes % 9.1 %; Neutrophils # 3.05 10^3/uL (1.8-7.7); Neutrophils % 60.4 %; Nucleated Red Blood Cells % 0 %; Platelet Count 234 10^3/cmm (157-399); Red Blood Count 4.39 10^6/uL (3.85-5.65); White Blood Count 5.05 10^3/uL (3.29-11.43)
[2023-04-14 17:57] LABS: Alanine Aminotransferase 16 U/L (0-33); Albumin Level 4.4 g/dL (3.5-5.2); Alkaline Phosphatase 87 U/L (35-105); Anion Gap 11.8 (5-19); Aspartate Amino Transferase 23 U/L (0-32); Blood Urea Nitrogen 13 mg/dL (6-20); Calcium 9.6 mg/dL (8.5-10.5); Carbon Dioxide 30 mmol/L (22-29); Chloride 103 mmol/L (98-107); Chol HDL Ratio 4.25 mg/dL (0.0-4.40); Cholesterol 170 mg/dL (0-200); Globulin 2.4 g/dL (1.3-4.6); Glomerular Filtration Rate 87.5 mL/min (90-130); Glucose 86 mg/dL (65-115); HDL Cholesterol 40 mg/dL (60-100); LDL Cholesterol Calculated 105 mg/dL (50-129); LDL HDL Ratio 2.63 RATIO (0.00-3.22); Magnesium 2.4 mg/dL (1.7-2.3); Osmolality Calculated 291 mOsm/kg (285-295); Potassium 3.8 mmol/L (3.5-5.1); Sodium 141 mmol/L (136-145); Total Bilirubin 0.3 mg/dL (0.15-1.2); Total Protein 6.8 g/dL (6.6-8.7); Triglycerides 126 mg/dL (0-150); Uric Acid 4.2 mg/dL (2.4-5.7)
== END 2023-04-14 17:20 | disposition home or self-care (01) ==
PROVIDERS: PCP Nurse Practitioner Family; Visit Provider Dermatology
DX: L40.0 Psoriasis vulgaris (principal); L60.8 Other nail disorders
CPT/HCPCS: 80053; 80061; 83735; 84550; 85025

== ENCOUNTER 2023-06-17 08:08 | Oncology outpatient (recurring) (ONCR) | payer BC, MEDICAID, SELFPAY ==
[2023-06-02] VITALS (8 sets, daily range): BP systolic 116–133; BP diastolic 77–87; PULSE 57–70; RESP 16; TEMP 36.3–36.8; O2SAT 95–100
[2023-06-02] MEDS: acetaminophen 325 mg Tablet 650 MG PO (14:49)
[2023-06-02] MEDS: sodium chloride 0.9% 250 ML 75 ML IV (14:49)
[2023-06-02] MEDS: diphenhydrAMINE 50 mg/mL SDV 1mL 25 MG IVP (14:50)
[2023-06-02] MEDS: methylPREDNISolone sod succ 40 mg SDV IVP (14:53)
[2023-06-02] MEDS: SODIUM CHLORIDE 0.9% IV (15:12)
[2023-06-02] MEDS: INFLIXIMAB ABDA IV (15:12)
[2023-06-17] VITALS (7 sets, daily range): BP systolic 110–133; BP diastolic 74–87; PULSE 63–82; RESP 16; TEMP 36.4–36.7; O2SAT 91–99
[2023-06-17] MEDS: sodium chloride 0.9% 500 ML 75 ML IV (08:39)
[2023-06-17] MEDS: acetaminophen 325 mg Tablet 650 MG PO (08:39)
[2023-06-17] MEDS: diphenhydrAMINE 50 mg/mL SDV 1mL 25 MG IVP (08:39)
[2023-06-17] MEDS: methylPREDNISolone sod succ 40 mg/mL INJ IVP (08:40)
[2023-06-17] MEDS: INFLIXIMAB ABDA IV (09:15)
[2023-06-17] MEDS: SODIUM CHLORIDE 0.9% IV (09:15)
== END 2023-06-30 23:59 | disposition home or self-care (01) ==
PROVIDERS: PCP Nurse Practitioner Family; Visit Provider Internal Medicine Rheumatology
DX: L40.50 Arthropathic psoriasis, unspecified (principal)
CPT/HCPCS: 96375; 96413; 96415; J1200; J2920; J7040; J7050; Q5104

== ENCOUNTER 2023-07-14 11:23 | Oncology outpatient (recurring) (ONCR) | payer BC, MEDICAID, SELFPAY ==
[2023-07-14] VITALS (7 sets, daily range): BP systolic 121–129; BP diastolic 80–87; PULSE 67–80; TEMP 36.6–37.1; O2SAT 92–98
[2023-07-14] MEDS: sodium chloride 0.9% 250 ML 75 ML IV (12:38)
[2023-07-14] MEDS: diphenhydrAMINE 50 mg/mL SDV 1mL 25 MG IVP (12:39)
[2023-07-14] MEDS: acetaminophen 325 mg Tablet 650 MG PO (12:40)
[2023-07-14 12:47] LABS: Basophils % 0.5 %; Eosinophils # 0.1 10^3/uL (0.0-0.8); Eosinophils % 3.3 %; Hematocrit 43.1 % (36-47); Lymphocytes # 0.9 10^3/uL (0.8-4.8); Lymphocytes % 19.8 %; Mean Corpuscular HGB Conc 33.9 g/dL (30-55); Mean Corpuscular Hemoglobin 33.7 pg (27-33); Mean Corpuscular Volume 99.5 fl (85-98); Mean Platelet Volume 9.4 fL (7.4-10.4); Monocytes # 0.3 10^3/uL (0.2-0.9); Monocytes % 6.5 %; Neutrophils # 2.99 10^3/uL (1.8-7.7); Neutrophils % 69.7 %; Nucleated Red Blood Cells % 0 %; Platelet Count 244 10^3/cmm (157-399); Red Blood Count 4.33 10^6/uL (3.85-5.65); White Blood Count 4.29 10^3/uL (3.29-11.43)
[2023-07-14 12:49] LABS: Erythrocyte Sedimentation Rate 6 mm/hr (0-15)
[2023-07-14] MEDS: methylPREDNISolone sod succ 40 mg/mL INJ IVP (12:54)
[2023-07-14 13:07] LABS: Alanine Aminotransferase 12 U/L (0-33); Alkaline Phosphatase 89 U/L (35-105); Aspartate Amino Transferase 17 U/L (0-32); Globulin 2.7 g/dL (1.3-4.6); Glomerular Filtration Rate 104.6 mL/min (90-130); Total Bilirubin 0.2 mg/dL (0.15-1.2); Total Protein 6.7 g/dL (6.6-8.7)
[2023-07-14] MEDS: SODIUM CHLORIDE 0.9% IV (13:16)
[2023-07-14] MEDS: INFLIXIMAB ABDA IV (13:16)
== END 2023-07-31 23:59 | disposition home or self-care (01) ==
PROVIDERS: PCP Nurse Practitioner Family; Visit Provider Internal Medicine Rheumatology
DX: L40.50 Arthropathic psoriasis, unspecified (principal)
CPT/HCPCS: 80076; 82565; 85025; 85651; 96375; 96413; 96415; J1200; J2920; J7050; Q5104

== ENCOUNTER 2023-09-09 08:11 | Oncology outpatient (recurring) (ONCR) | payer BC, MEDICAID, SELFPAY ==
[2023-09-09] MEDS: sodium chloride 0.9% 250 ML 75 ML IV (08:38)
[2023-09-09] MEDS: acetaminophen 325 mg Tablet 650 MG PO (08:39)
[2023-09-09] MEDS: diphenhydrAMINE 50 mg/mL SDV 1mL 25 MG IVP (08:39)
[2023-09-09] MEDS: methylPREDNISolone sod succ 40 mg/mL INJ IVP (08:40)
[2023-09-09 09:05] VITALS: BP 117/78; PULSE 69; RESP 16; TEMP 36.7; O2SAT 91
[2023-09-09] MEDS: INFLIXIMAB ABDA IV (09:05)
[2023-09-09] MEDS: SODIUM CHLORIDE 0.9% IV (09:05)
[2023-09-09 09:20] VITALS: BP 115/77; PULSE 69; RESP 16; TEMP 36.7; O2SAT 93
[2023-09-09 09:35] VITALS: BP 121/79; PULSE 66; RESP 16; TEMP 36.7; O2SAT 94
[2023-09-09 09:50] VITALS: BP 126/78; PULSE 61; RESP 16; TEMP 36.7; O2SAT 97
[2023-09-09 11:30] VITALS: BP 123/81; PULSE 72; RESP 16; TEMP 36.6; O2SAT 96
== END 2023-09-29 23:59 | disposition home or self-care (01) ==
PROVIDERS: PCP Nurse Practitioner Family; Visit Provider Internal Medicine Rheumatology
DX: L40.50 Arthropathic psoriasis, unspecified (principal); Z53.9 Procedure and treatment not carried out, unspecified reason
CPT/HCPCS: 96375; 96413; 96415; A4222; J1200; J2920; J7050; Q5104

== ENCOUNTER → 2023-10-05 09:11 | Outpatient (BNVA) | payer BC, MEDICAID, SELFPAY | PROVIDERS: PCP Nurse Practitioner Family; Visit Provider Nurse Practitioner Family | DX: E03.9 Hypothyroidism, unspecified (principal); I10 Essential (primary) hypertension; G51.0 Bell's palsy; R53.83 Other fatigue; W57.XXXA Bitten or stung by nonvenomous insect and other nonvenomous arthropods, initial encounter | CPT/HCPCS: 80053; 80061; 84443; 85025; 86140; 86618; 86666; 86757 ==

== ENCOUNTER 2023-11-10 09:46 | Oncology outpatient (recurring) (ONCR) | payer BC, MEDICAID, SELFPAY ==
[2023-11-10] VITALS (8 sets, daily range): BP systolic 110–132; BP diastolic 70–80; PULSE 61–79; RESP 16; TEMP 36.3–36.9; O2SAT 95–99
[2023-11-10] MEDS: sodium chloride 0.9% 250 ML 75 ML IV (10:22)
[2023-11-10] MEDS: acetaminophen 325 mg Tablet 650 MG PO (10:23)
[2023-11-10] MEDS: methylPREDNISolone sod succ 40 mg/mL INJ IVP (10:25)
[2023-11-10] MEDS: diphenhydrAMINE 50 mg/mL SDV 1mL 25 MG IVP ×2 (10:30→13:24)
[2023-11-10] MEDS: SODIUM CHLORIDE 0.9% IV (11:24)
[2023-11-10] MEDS: INFLIXIMAB ABDA IV (11:24)
== END 2023-11-29 23:59 | disposition home or self-care (01) ==
PROVIDERS: PCP Nurse Practitioner Family; Visit Provider Internal Medicine Rheumatology
DX: L40.50 Arthropathic psoriasis, unspecified (principal)
CPT/HCPCS: 96375; 96413; 96415; J1200; J2919; J7050; Q5104

== ENCOUNTER 2023-12-23 07:36 | Oncology outpatient (recurring) (ONCR) | payer BC, MEDICAID, SELFPAY ==
[2023-12-23] VITALS (8 sets, daily range): BP systolic 105–118; BP diastolic 65–79; PULSE 58–72; RESP 16; TEMP 36.1–36.8; O2SAT 90–98; BMI 34.2
[2023-12-23 08:42] LABS: Basophils % 0.6 %; Eosinophils # 0.2 10^3/uL (0.0-0.8); Eosinophils % 4.5 %; Hematocrit 42.6 % (36-47); Lymphocytes # 1.4 10^3/uL (0.8-4.8); Lymphocytes % 25.2 %; Mean Corpuscular HGB Conc 33.1 g/dL (30-55); Mean Corpuscular Hemoglobin 32.6 pg (27-33); Mean Corpuscular Volume 98.6 fl (85-98); Mean Platelet Volume 8.8 fL (7.4-10.4); Monocytes # 0.4 10^3/uL (0.2-0.9); Monocytes % 7.5 %; Neutrophils # 3.32 10^3/uL (1.8-7.7); Nucleated Red Blood Cells % 0 %; Platelet Count 278 10^3/cmm (157-399); Red Blood Count 4.32 10^6/uL (3.85-5.65); Red Cell Distribution Width 13.1 % (12.1-15.1); White Blood Count 5.35 10^3/uL (3.29-11.43)
[2023-12-23] MEDS: sodium chloride 0.9% 250 ML 75 ML IV (08:44)
[2023-12-23] MEDS: acetaminophen 325 mg Tablet 650 MG PO (08:44)
[2023-12-23] MEDS: diphenhydrAMINE 50 mg/mL SDV 1mL 25 MG IVP (08:44)
[2023-12-23] MEDS: methylPREDNISolone sod succ 40 mg/mL INJ IVP (08:45)
[2023-12-23 09:03] LABS: Alanine Aminotransferase 13 U/L (0-33); Albumin Level 4.1 g/dL (3.5-5.2); Alkaline Phosphatase 91 U/L (35-105); Aspartate Amino Transferase 21 U/L (0-32); Creatinine Clr Calc Pharmacy 122.5242; Globulin 3.5 g/dL (1.3-4.6); Glomerular Filtration Rate 104.6 mL/min (90-130); Total Bilirubin 0.4 mg/dL (0.15-1.2); Total Protein 7.6 g/dL (6.6-8.7)
[2023-12-23] MEDS: INFLIXIMAB ABDA IV (09:05)
[2023-12-23] MEDS: SODIUM CHLORIDE 0.9% IV (09:05)
[2023-12-23 09:15] LABS: Erythrocyte Sedimentation Rate 10 mm/hr (0-15)
== END 2023-12-30 23:59 | disposition home or self-care (01) ==
PROVIDERS: PCP Nurse Practitioner Family; Visit Provider Internal Medicine Rheumatology
DX: L40.50 Arthropathic psoriasis, unspecified (principal)
CPT/HCPCS: 80076; 82565; 85025; 85651; 96375; 96413; 96415; J1200; J2919; J7050; Q5104

== ENCOUNTER 2024-02-04 18:47 | Inpatient (IN) | payer BC, MEDICAID, SELFPAY ==
[2024-02-04] VITALS (36 sets, daily range): BP systolic 108–128; BP diastolic 75–93; PULSE 53–118; RESP 6–24; TEMP 36.6; O2SAT 90–100; BMI 34.7
--- NOTE | 2024-02-04 18:23 | P.HP_ITS ---
Providers/Chief Complaint Admitting Physician: Jaylen Garcia M.D Primary Care Provider: YASMANI Calles Chief Complaint: Emergant Cath History of Present Illness Richelle Valle is a 53 year old female with the past medical history of psoritic arthritis, hypertension, hypothyroidism who presented to outside hospital with 2 to 3 days of severe substernal chest pain. Has radiation to jaw. Today pain got worse and went to ER. She was found to have anterior ST elevations with Q waves in anterior and anteroseptal leads.Cardiac Records Associate was activated and patient was emergently sent for emergent cardiac cath with possible PCI.On arrival to [facility], patient describes ongoing chest discomfort. She has documented allergy to aspirin and says that she had severe swelling of lips and face with aspirin before. She was loaded with Plavix 600mg daily. Review of Systems Const: Denies: fever(s) Card: Reports: chest pain Resp: Reports: dyspnea GI: Reports: nausea Medications/Allergies Home Medications Medication Instructions Recorded Confirmed Last Taken Type halobetasol propionate 0.01 1 applic topical DAILY #100 grams 03/29/22 01/03/24 Unknown Rx %-tazarotene 0.045 % lotion triamcinolone acetonide 0.1 % 1 applic topical BID #453.6 grams 03/29/22 01/03/24 Unknown Rx topical ointment clobetasol 0.05 % topical ointment 1 applic topical BID 2 weeks #60 07/12/22 01/03/24 Unknown Rx grams mupirocin 2 % topical ointment 1 applic topical BID psoriasis #22 07/12/22 01/03/24 Unknown Rx grams triamcinolone acetonide 0.1 % 1 applic topical BID #454 grams 07/12/22 01/03/24 Unknown Rx topical ointment epinephrine 0.3 mg/0.3 mL 0.3 mg (0.3 mL) IM Q4H PRN 09/27/22 01/03/24 Unknown Rx injection, auto-injector (EpiPen anaphylaxis #2 ea 2-Leonardo) CPAP and supplies #1 ea 01/05/23 01/03/24 Unknown Rx Ventolin HFA 90 mcg/actuation See Rx Instructions .Route 04/14/23 01/03/24 Unkno wn Rx aerosol inhaler (albuterol sulfate) .COMPLEX #18 grams leflunomide 20 mg tablet 20 mg PO DAILY #90 tabs 10/18/23 01/03/24 Unknown Rx pregabalin 100 mg capsule (Lyrica) See Rx Instructions PO BID #90 caps 10/18/23 01/03/24 Unknown Rx indomethacin 75 mg 75 mg PO BID #60 caps 11/09/23 01/03/24 Unknown Rx capsule,extended release amlodipine 10 mg tablet See Rx Instructions .Route 11/28/23 01/03/24 Unknown Rx .COMPLEX #90 tabs oxybutynin chloride 10 mg See Rx Instructions .Route 11/28/23 01/03/24 Unknown Rx tablet,extended release 24 hr .COMPLEX #90 tabs duloxetine 60 mg capsule,delayed See Rx Instructions .Route 11/30/23 01/03/24 Unknown Rx release .COMPLEX #60 caps levothyroxine 112 mcg capsule 112 mcg PO DAILY #90 caps 12/12/23 01/03/24 Unknown Rx cephalexin 500 mg capsule 500 mg PO Q8H 7 days #21 caps 01/02/24 01/03/24 Unknown Rx diclofenac sodium 75 mg 75 mg PO Q12H PRN moderate to 01/17/24 Unknown Rx tablet,delayed release severe pain as needed #30 tabs Allergies Allergy/AdvReac Type Severity Reaction Status Date / Time aspirin Allergy unknown Verified 01/03/24 14:37 latex Allergy unknown Verified 01/03/24 14:37 pantoprazole [From Protonix] Allergy ADR-Nausea Verified 01/03/24 14:37 tofacitinib [From Xeljanz] AdvReac Intermediate nausea and Verified 01/03/24 14:37 vomiting PFSH Acute PFSH: Medical History RLQ abdominal pain Colon cancer screening Breast cancer screening by mammogram Vitamin D deficiency Hypertension screen Acute bacterial sinusitis Fibromyalgia Nail pitting Dactylitis of finger Immunization counseling High risk medication use Plaque psoriasis Hypothyroidism, acquired Mild asthma Essential hypertension Psoriasis Psoriatic arthritis Surgical History History of spinal fusion 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 Social History Smoking and tobacco/nicotine status: former use of tobacco/nicotine Physical Exam Narrative: GENERAL: Patient is alert, awake and oriented x3. [] NECK: No jugular vein distension. [] HEENT: No cyanosis. No icterus. No pallor. [] HEART: Regular S1 and S2. No murmur, rub or gallop. [] LUNGS: Clear to auscultate bilaterally. [] CENTRAL NERVOUS SYSTEM: Grossly nonfocal. [] EXTREMITIES: Lower extremities with no edema bilaterally. A&P Assessment and plan (1) STEMI (ST elevation myocardial infarction): (2) Essential hypertension: (3) Psoriatic arthritis: Plan Patient has presented with anterior wall ST elevation [place]. Symptom onset has been about 2 to 3 days ago however still having on and off severe pain. Given presentation, patient was transferred from outside hospital emergently for cardiac catheterization. She has allergy to aspirin with severe allergic reaction. She was loaded with Plavix at outside hospital. Post PCI, we will keep her on Aggrastat drip for 12 hours. Will switch to monotherapy with Brilinta 180 mg load in the morning and 90 mg twice daily thereafter. Order echocardiogram. She will go to ICU postintervention. We will consult medicine team for medical management of non-cardiac issues. Attestations Medical Necessity Statement*: Care expected to cross 2 midnights. Patient has presented with anterior wall STEMI and undergoing emergent cardiac catheterization with PCI Coding Level of Care Code Acute Code for [facility] Diagnoses STEMI (ST elevation myocardial infarction) I21.3 Essential hypertension I10 Psoriatic arthritis L40.50
--- NOTE | 2024-02-04 19:49 | PM.MISC ---
Miscellaneous Note Purpose of Documentation: Brief procedure note Note: Total thrombotic occlusion of proximal LAD s/p PCI with 1 stent. Plan: Because of aspirin allergy and already loaded with Plavix 600 mg at outside hospital, we will continue Aggrastat till tomorrow morning. Will load with Brilinta in the a.m.
--- NOTE | 2024-02-04 19:53 | XRR_ITS ---
PROCEDURE INFORMATION: Exam: XR Chest Exam date and time: 02/04/2024 9:54 PM Age: 53 years old Clinical indication: Sternal or substernal pain; Patient HX: Substernal pain and radiating to jaw; . Image is post stemi TECHNIQUE: Imaging protocol: Radiologic exam of the chest. Views: 1 view. COMPARISON: CR XR chest 2V* [id number] 05/02/2020 9:53 AM FINDINGS: Lungs: Unremarkable. No consolidation. Pleural spaces: Unremarkable. No pleural effusion. No pneumothorax. Heart/Mediastinum: Unremarkable. No cardiomegaly. Bones/joints: Unremarkable. XR/XR chest 1V [id number] IMPRESSION: No acute findings.
--- NOTE | 2024-02-04 19:57 | PM.CONSULT ---
Providers/Reason For Consult Consulting Physician/Specialty*: Reta Forde MD/Internal Medicine Reason for Consult*: Medical management Attending Physician: Jaylen Garcia M.D Primary Care Provider: YASMANI Calles History of Present Illness History of Present Illness Richelle Valle is a 53 year old female With past medical history of plaque psoriasis, vitamin D deficiency, fibromyalgia, hypothyroidism, hypertension, dactylitis in the past, on leflunomide who presented to the hospital today from [facility] for complaint of chest pain that was substernal and severe in nature radiating to jaw. Pain got worse, STEMI alert was called, Full Stack Engineer was activated and patient was taking for emergent cardiac cath with PCI with CHRIS to LAD. Patient does have severe allergy to aspirin and has had swelling of lips and face before. She was loaded with Plavix 600 at [facility]. She has been seen status post Full Stack Engineer and is doing well right now. Currently on Aggrastat drip. Plan is to switch to monotherapy with Brilinta after loading with 180 in morning at 6 AM and thereafter 90 twice daily. Echo has been ordered. Cardiology has consulted internal medicine for medical management of patient's comorbid conditions. Patient denies chest pain, nausea, vomiting, shortness of breath at this time. Medications/Allergies Home Medications Medication Instructions Recorded Confirmed Last Taken Type halobetasol propionate 0.01 1 applic topical DAILY #100 grams 03/29/22 02/04/24 Unknown Rx %-tazarotene 0.045 % lotion triamcinolone acetonide 0.1 % 1 applic topical BID #453.6 grams 03/29/22 02/04/24 Unknown Rx topical ointment clobetasol 0.05 % topical ointment 1 applic topical BID 2 weeks #60 07/12/22 02/04/24 Unknown Rx grams mupirocin 2 % topical ointment 1 applic topical BID psoriasis #22 07/12/22 02/04/24 Unknown Rx grams triamcinolone acetonide 0.1 % 1 applic topical BID #454 grams 07/12/22 02/04/24 Unknown Rx topical ointment epinephrine 0.3 mg/0.3 mL 0.3 mg (0.3 mL) IM Q4H PRN 09/27/22 02/04/24 Unknown Rx injection, auto-injector (EpiPen anaphylaxis #2 ea 2-Leonardo) CPAP and supplies #1 ea 01/05/23 01/03/24 Unknown Rx Ventolin HFA 90 mcg/actuation See Rx Instructions .Route 04/14/23 02/04/24 Unknown Rx aerosol inhaler (albuterol sulfate) .COMPLEX #18 grams pregabalin 100 mg capsule (Lyrica) See Rx Instructions PO BID #90 caps 10/18/23 02/04/24 01/30/24 Rx amlodipine 10 mg tablet See Rx Instructions .Route 11/28/23 02/04/24 01/30/24 Rx .COMPLEX #90 tabs oxybutynin chloride 10 mg See Rx Instructions .Route 11/28/23 02/04/24 01/30/24 Rx tablet,extended release 24 hr .COMPLEX #90 tabs duloxetine 60 mg capsule,delayed See Rx Instructions .Route 11/30/23 02/04/24 01/30/24 Rx release .COMPLEX #60 caps levothyroxine 112 mcg capsule 112 mcg PO DAILY #90 caps 12/12/23 02/04/24 01/30/24 Rx diclofenac sodium 75 mg 75 mg PO Q12H PRN moderate to 01/17/24 02/04/24 01/30/24 Rx tablet,delayed release severe pain as needed #30 tabs infliximab-abda 100 mg intravenous mg IV DIRECTED 02/04/24 Unknown History solution (Renflexis) Allergies Allergy/AdvReac Type Severity Reaction Status Date / Time aspirin Allergy unknown Verified 01/03/24 14:37 latex Allergy unknown Verified 01/03/24 14:37 pantoprazole [From Protonix] Allergy ADR-Nausea Verified 01/03/24 14:37 peanut Allergy ALGY-Hives Verified 02/04/24 21:52 tofacitinib [From Xeljanz] AdvReac Intermediate nausea and Verified 01/03/24 14:37 vomiting PFSH Acute PFSH: Medical History RLQ abdominal pain Colon cancer screening Breast cancer screening by mammogram Vitamin D deficiency Hypertension screen Acute bacterial sinusitis Fibromyalgia Nail pitting Dactylitis of finger Immunization counseling High risk medication use Plaque psoriasis Hypothyroidism, acquired Mild asthma Essential hypertension Psoriasis Psoriatic arthritis Surgical History History of spinal fusion 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 Social History Smoking and tobacco/nicotine status: former use of tobacco/nicotine Physical Exam Narrative: General: Alert oriented x3, patient seen laying in bed on nasal cannula at this time HEENT: Normocephalic, atraumatic, EOMI, breathing comfortably. Cardio: Regular rate rhythm, normal S1-S2, no gross murmurs appreciated on auscultation Respiratory: Clear to auscultation bilaterally GI: Abdomen soft, nontender, nondistended, bowel sounds + Extremities: Pulses intact bilaterally, pedal check. Data 02/04/24 20:11 02/04/24 20:11 A&P Assessment and plan (1) High risk medication use: (2) Essential hypertension: (3) STEMI (ST elevation myocardial infarction): (4) Hypothyroidism, acquired: (5) Psoriasis: Plan #STEMI status post PCI to LAD #Psoriasis, chronically on a DMARD #Hypertension #Hypothyroidism ? Check hemoglobin A1c, TSH, lipid profile ? Check echo ? Continue Aggrastat drip as per cardiology orders ? Give patient Brilinta 180 loading dose at 6 AM. Thereafter placed on Brilinta 90 twice daily. ? Patient will be discharged on Brilinta monotherapy. She has severe allergy to aspirin. Discussed with cardiology regarding aspirin desensitization however at this time Brilinta monotherapy to be recommended as per latest studies supporting its use. ? Continue atorvastatin 80 daily ? Check baseline labs CBC, CMP, magnesium ? Check PT/INR in a.m. ? Check platelets every 4 hours. Patient on Aggrastat. ? Continue levothyroxine 112 daily, pregabalin, duloxetine ? Add beta-iva ? Does not take leflunomide anymore. Will need to confirm all home medications prior to restarting. -Low threshold to repeat EKG if chest pain, shortness of breath or any other anginal symptoms appear through the night. ? Patient not a known diabetic. However will place on Accu-Chek every 6 hours. Full code DVT prophylaxis: Patient on Aggrastat drip at this time. I will not overlap with an anticoagulant. May switch to heparin 5000 subcu twice daily in a.m. after existing drip is stopped. Consult Attestations Medical Necessity Statement: Greater than 2 midnight stay for management of STEMI status post cath. Diagnoses High risk medication use Z79.899 Essential hypertension I10 STEMI (ST elevation myocardial infarction) I21.3 Hypothyroidism, acquired E03.9 Psoriasis L40.9
--- NOTE | 2024-02-04 20:15 | ECG_ITS ---
[facility] Test Date: 2024-02-04 Pat Name: Richelle Valle Department: Room: [facility] Gender: Female Legal Librarian: : 1970 Requested By: Jaylen Garcia Order Number: [id number] Yue MD: Jaylen Garcia M.D. Measurements Intervals [place] Rate: 60 P: 53 AR: 163 QRS: -41 QRSD: 95 T: 100 QT: 436 QTc: 437 Interpretive Statements SINUS RHYTHM INFERIOR MYOCARDIAL INFARCTION , PROBABLY OLD [40+ ms Q WAVE AND/OR ST/T ABNORMALITY IN II/aVF] ANTEROSEPTAL MYOCARDIAL INFARCTION , PROBABLY RECENT [40+ ms Q WAVE IN V1-V4] ACUTE TX No previous ECG available for comparison Electronically Signed On 02-05-2024 19:29:01 CDT by Jaylen Garcia M.D. [id number]
[2024-02-04 20:19] LABS: Basophils % 0.4 %; Eosinophils # 0.2 10^3/uL (0.0-0.8); Eosinophils % 2.4 %; Hematocrit 45.2 % (36-47); Lymphocytes # 1.1 10^3/uL (0.8-4.8); Lymphocytes % 13.5 %; Mean Corpuscular HGB Conc 33.8 g/dL (30-55); Mean Corpuscular Hemoglobin 32.6 pg (27-33); Mean Corpuscular Volume 96.2 fl (85-98); Mean Platelet Volume 8.9 fL (7.4-10.4); Monocytes # 0.4 10^3/uL (0.2-0.9); Monocytes % 4.5 %; Neutrophils # 6.26 10^3/uL (1.8-7.7); Neutrophils % 78.8 %; Nucleated Red Blood Cells % 0 %; Platelet Count 284 10^3/cmm (157-399); Red Cell Distribution Width 12.8 % (12.1-15.1); White Blood Count 7.94 10^3/uL (3.29-11.43)
[2024-02-04 20:43] LABS: Anion Gap 12.6 (5-19); Blood Urea Nitrogen 13 mg/dL (6-20); Calcium 8.7 mg/dL (8.5-10.5); Carbon Dioxide 27 mmol/L (22-29); Chloride 104 mmol/L (98-107); Creatinine Clr Calc Pharmacy 123.2384; Glomerular Filtration Rate 104.6 mL/min (90-130); Glucose 100 mg/dL (65-115); Osmolality Calculated 290 mOsm/kg (285-295); Potassium 3.6 mmol/L (3.5-5.1); Sodium 140 mmol/L (136-145)
[2024-02-04 20:45] LABS: Troponin T (5th) Once 645 ng/L (0-10)
[2024-02-04] MEDS: metoprolol tartrate 25 mg Tablet PO (21:06)
[2024-02-04] MEDS: atorvastatin 40 mg Tablet 80 MG PO (21:06)
[2024-02-04] MEDS: tirofiban 5 MG/100 ML PREMIX 11.3 MG IV (21:11)
--- NOTE | 2024-02-04 21:11 | PC.NURSE ---
Aggrastat drip started by catheterization laboratory technician and was already going upon arrival to unit. Dr. Garcia gave a verbal order to keep drip going until 0700.
[2024-02-04 21:24] LABS: Glucose Point of Care 109 mg/dL (70-110)
[2024-02-04 21:38] LABS: Procalcitonin 0.03 ng/mL (0-0.5); Thyroid Stimulating Hormone 1.74 uIU/mL (0.27-4.20)
[2024-02-04 21:50] LABS: Chol HDL Ratio 5.18 mg/dL (0.0-4.40); Cholesterol 171 mg/dL (0-200); HDL Cholesterol 33 mg/dL (60-100); LDL Cholesterol Calculated 114 mg/dL (50-129); Triglycerides 122 mg/dL (0-150); VLDL Cholestrol Calculation 24 mg/dL (0-30)
[2024-02-04 22:07] LABS: Estmated Average Glucose 103; Hemoglobin A1C 5.2 % (4.0-6.0)
[2024-02-05] VITALS (35 sets, daily range): BP systolic 110–138; BP diastolic 78–93; PULSE 53–84; RESP 13–31; TEMP 36.6–36.8; O2SAT 91–99
[2024-02-05 04:19] LABS: Basophils % 0.2 %; Eosinophils # 0.2 10^3/uL (0.0-0.8); Eosinophils % 2.1 %; Hematocrit 46.7 % (36-47); Lymphocytes # 1.2 10^3/uL (0.8-4.8); Lymphocytes % 12.2 %; Mean Corpuscular HGB Conc 33.4 g/dL (30-55); Mean Corpuscular Volume 95.7 fl (85-98); Mean Platelet Volume 9.5 fL (7.4-10.4); Monocytes # 0.7 10^3/uL (0.2-0.9); Monocytes % 7.1 %; Neutrophils # 7.44 10^3/uL (1.8-7.7); Nucleated Red Blood Cells % 0 %; Platelet Count 306 10^3/cmm (157-399); Red Blood Count 4.88 10^6/uL (3.85-5.65); White Blood Count 9.54 10^3/uL (3.29-11.43)
[2024-02-05 04:43] LABS: INR 0.94 (0.8-1.2)
[2024-02-05 04:52] LABS: Alanine Aminotransferase 43 U/L (0-33); Albumin Level 4.3 g/dL (3.5-5.2); Alkaline Phosphatase 91 U/L (35-105); Anion Gap 14.4 (5-19); Aspartate Amino Transferase 187 U/L (0-32); Blood Urea Nitrogen 9 mg/dL (6-20); Carbon Dioxide 25 mmol/L (22-29); Chloride 104 mmol/L (98-107); Creatinine Clr Calc Pharmacy 184.8575; Globulin 3.2 g/dL (1.3-4.6); Glucose 107 mg/dL (65-115); Osmolality Calculated 289 mOsm/kg (285-295); Phosphorus 2.6 mg/dL (2.5-4.5); Potassium 3.4 mmol/L (3.5-5.1); Sodium 140 mmol/L (136-145); Total Bilirubin 0.3 mg/dL (0.15-1.2); Total Protein 7.5 g/dL (6.6-8.7)
[2024-02-05 05:13] LABS: Glucose Point of Care 118 mg/dL (70-110)
[2024-02-05] MEDS: ticagrelor 90 mg Tablet 180 MG PO (05:58)
[2024-02-05] MEDS: tirofiban 5 MG/100 ML PREMIX 11.3 MG IV (05:59)
--- NOTE | 2024-02-05 06:00 | USCV_ITS ---
Richelle Valle Age: 53 Gender: F : 1970 Exam Date: 02/05/2024 07:19 Ordering Phys: Jaylen Garcia M.D ([email or web address]) Technologist: Qasim Abdul [place]am [place] [facility] [place] Indication: stemi BP: 110 / 76 HR: 58 Rhythm: Sinus Technical Quality: Adequate MEASUREMENTS (Male / Female) Normal Values 2D ECHO LV Diastolic Diameter PLAX 3.6 cm 4.2 - 5.9 / 3.9 - 5.3 cm IVS Diastolic Thickness 1.1 cm 0.6 - 1.0 / 0.6 - 0.9 cm IVS Systolic Thickness 1.5 cm LVPW Diastolic Thickness 2.2 cm 0.6 - 1.0 / 0.6 - 0.9 cm LVPW Systolic Thickness 2.2 cm LVOT Diameter 2.1 cm LV Ejection Fraction 2D Teich 41.8 % LV Ejection Fraction MOD 2C 67.9 % LV Ejection Fraction 2C AL 68.1 % LA Diameter 3.3 cm RA Systolic Volume 4C AL 30.7 ml RA Systolic Volume 4C MOD 30.4 ml LA Sys Volume AL 42.4 cm cubed LA Sys Volume Index AL 20.0 cm cubed/m squared Aorta at Sinotubular Diameter 2.5 cm IVC Diameter 1.6 cm M-MODE LA Ao Ratio MM 1.3 AV Cusp Separation MM 2.1 cm DOPPLER AV Peak Velocity 147.7 cm/s LVOT Peak Velocity 103.0 cm/s AV Area Cont Eq vti 2.5 cm squared AV Area Cont Eq pk 2.3 cm squared MV Peak Velocity 103.0 cm/s MV Area PHT 4.4 cm squared Mitral E to A Ratio 0.6 TR Peak Velocity 163.0 cm/s TR Peak Gradient 10.6 mmHg TR Mean Velocity 138.0 cm/s TR Mean Gradient 8.0 mmHg TR Velocity Time Integral 37.8 cm PV Peak Velocity 90.0 cm/s RV Ejection Time 0.3 s FINDINGS Left Ventricle Left ventricle is normal in size. LV systolic function is moderately reduced with EF of 35 to 40%. Severe apical hypokinesis. Grade 1 diastolic dysfunction. Right Ventricle Normal in size and function Right Atrium Normal in size Left Atrium Normal in size Mitral Valve Structurally normal mitral valve. Mild mitral regurgitation. Aortic Valve Structurally normal aortic valve. No significant stenosis or regurgitation. Tricuspid Valve Insufficient TR jet to evaluate RVSP. Pulmonic Valve Not well visualized Pericardium Normal Aorta Normal in size IVC Appears to be normal CONCLUSIONS LV systolic function is moderately reduced with EF of 35-40%. Grade 1 diastolic dysfunction Mild mitral regurgitation No comparison studies are available. Jaylen Garcia MD (Electronically Signed) Final Date: 05 February 2024 10:06 S
--- NOTE | 2024-02-05 06:52 | PC.NURSE ---
Received report from RABIA Cyr. Patient is s/p [facility] with right femoral access. Dressing to site remains c,d,i without s/s of bleeding or hematoma formation observed. Patient denies pain to site. Lower extremity pulses present. Patient has been up to ambulate earlier in the am. Tolerated well.
[2024-02-05] MEDS: potassium chloride ER 20 mEq Tablet 40 MEQ PO (08:42)
[2024-02-05] MEDS: metoprolol tartrate 25 mg Tablet PO ×2 (08:42→20:20)
--- NOTE | 2024-02-05 08:46 | P.PN_ITS ---
Subjective 2 Subjective: Patient had successful revascularization of proximal LAD with 1 stent yesterday. No chest pain today. Has occasional nausea. She is on monotherapy with Brilinta now. Vitals/I&O/Wt Last Vital Signs Temp 98.1 F 02/05/24 06:03 Pulse 59 L 02/05/24 07:47 Resp 16 02/05/24 07:47 BP 110/79 02/05/24 07:00 Pulse Ox 94 02/05/24 07:47 O2 Del Method Room Air 02/05/24 07:47 02/04/24 02/05/24 02/05/24 22:59 06:59 14:59 Intake Total 99.44 / 99.44 431.488 / 431.488 Balance 99.44 / 99.44 431.488 / 431.488 Weight last 48 hrs Weight 208 lb 4.8 oz Weight 208 lb 4.8 oz Physical Exam 2 Narrative: GENERAL: Patient is alert, awake and oriented x3. [] NECK: No jugular vein distension. [] HEENT: No cyanosis. No icterus. No pallor. [] HEART: Regular S1 and S2. No murmur, rub or gallop. [] LUNGS: Clear to auscultate bilaterally. [] CENTRAL NERVOUS SYSTEM: Grossly nonfocal. [] EXTREMITIES: Lower extremities with no edema bilaterally. Data 02/05/24 03:19 02/06/24 03:17 A&P Assessment and plan (1) STEMI (ST elevation myocardial infarction): (2) Essential hypertension: (3) Psoriatic arthritis: (4) LV dysfunction: Plan Patient underwent successful revascularization of proximal LAD with 1 stent. As she is allergic to aspirin and had severe allergic reaction in the past, will continue monotherapy with Brilinta 90 mg twice daily. Was loaded this morning. Continue atorvastatin and metoprolol. Echo shows moderately reduced LV systolic function with EF of 35 to 40%. Will add losartan at time of discharge. Medicine team on board for management of medical issues. Attestations 2 Medical Necessity Statement*: Care expected to cross 2 midnights. Patient had presented with acute anterior wall ST elevation [place]. Underwent successful revascularization with 1 stent. Coding Level of Care Code Acute Code for [facility] Diagnoses STEMI (ST elevation myocardial infarction) I21.3 Essential hypertension I10 Psoriatic arthritis L40.50 LV dysfunction I51.9
--- NOTE | 2024-02-05 09:36 | PC.NURSE ---
Clarified need for accucheck. Received order to discontinue accuchecks.
[2024-02-05 10:05] LABS: Troponin T (5th) Once 2773 ng/L (0-10)
--- NOTE | 2024-02-05 12:02 | PM.PN ---
Subjective Subjective: Patient doing well Potassium replenished Can be transferred out of ICU to [facility] [place] [place] No significant arrhythmias stent in LAD Vitals/I&O/Wt Last Vital Signs Temp 98.3 F 02/05/24 11:46 Pulse 64 02/05/24 11:46 Resp 19 H 02/05/24 11:46 BP 115/84 02/05/24 11:46 Pulse Ox 94 02/05/24 07:47 O2 Del Method Room Air 02/05/24 11:46 02/04/24 02/05/24 02/05/24 22:59 06:59 14:59 Intake Total 99.44 / 99.44 671.488 / 671.488 Balance 99.44 / 99.44 671.488 / 671.488 Weight last 48 hrs Weight 94.483 kg Weight 94.483 kg Physical Exam Narrative: Awake and alert GCS 15 Pleasant cooperative nonfocal neuroexam S1, S2 Hemodynamically stable Data 02/05/24 03:19 02/05/24 03:19 A&P Assessment and plan (1) STEMI (ST elevation myocardial infarction): Plan STEMI status post intervention and stent to LAD History hypertension Patient is not diabetic Patient is stating that she has history of fibromyalgia, psoriatic arthritis She is due for an infusion which is being ordered by survey superintendent Full code Cardiac diet Plan to discharge likely Tuesday Continue Brilinta Aggrastat discontinued Hypokalemia: Replenished No acute exacerbation of fibromyalgia or any worsening of Psoriatec joint arthritis Full code Cardiac diet Attestations Medical Necessity Statement*: Continue medical management Diagnoses STEMI (ST elevation myocardial infarction) I21.3
--- NOTE | 2024-02-05 13:00 | PC.NURSE ---
Patient not eating due to nausea and food tasting off . Patient believes it is just her taster . Offered alternatives. Patient refused at this time. Will continue to monitor.
--- NOTE | 2024-02-05 14:12 | PC.NURSE ---
Education provided regarding [facility] site care and new medications. Patient and spouse both verbalized complete understanding.
--- NOTE | 2024-02-05 15:07 | PC.NURSE ---
Spouse brought patient in some fresh fruit. Patient states, I have been able to eat a small amount and my nausea is gone presently. Discussed need for food to help with medication metabolism. Patient verbalized complete understanding.
[2024-02-05] MEDS: ticagrelor 90 mg Tablet PO (17:43)
[2024-02-05] MEDS: atorvastatin 40 mg Tablet 80 MG PO (20:20)
[2024-02-06] VITALS (16 sets, daily range): BP systolic 104–137; BP diastolic 71–87; PULSE 59–86; RESP 12–26; TEMP 36.5–37.4; O2SAT 92–99; BMI 34.4
[2024-02-06] MEDS: acetaminophen 325 mg Tablet 650 MG PO (01:00)
--- NOTE | 2024-02-06 02:42 | ECG_ITS ---
[facility] Test Date: 2024-02-06 Pat Name: Richelle Valle Department: Room: [facility]05 Gender: Female Ct Scan Tech: : 1970 Requested By: Reta Forde Order Number: [id number] Yue MD: Jaylen Garcia M.D. Measurements Intervals [place] Rate: 67 P: 46 MI: 150 QRS: -42 QRSD: 90 T: 103 QT: 412 QTc: 435 Interpretive Statements SINUS RHYTHM POSSIBLE LEFT ATRIAL ENLARGEMENT [-0.1mV P-WAVE IN V1/V2] LEFT AXIS DEVIATION [QRS AXIS < -30] LOW QRS VOLTAGE IN PRECORDIAL LEADS [QRS DEFLECTION < 1.0 mV IN CHEST LEADS] ANTEROSEPTAL MYOCARDIAL INFARCTION , PROBABLY RECENT [40+ ms Q WAVE IN V1-V4] ACUTE NH Compared to ECG 02/04/2024 20:15:01 Left-axis deviation now present Low QRS voltage now present Myocardial infarct finding still present Electronically Signed On 02-06-2024 12:03:56 CDT by Jaylen Garcia M.D. [id number]
[2024-02-06] MEDS: fentaNYL 50 mcg/mL INJ 2mL IVP (03:24)
[2024-02-06] MEDS: nitroglycerin 1 gm/inch oint Pkt 1 INCH TOPICAL (03:28)
--- NOTE | 2024-02-06 04:19 | PC.NURSE ---
pt neck/ arm pain pt called out after midnight blood pressure and stated that she was having left neck/ arm pain. this nurse gave tylenol and wrapped in a warm blanket. approx 1-1.5 hours later pt is still having pain so this nurse obtained an ekg, notified physician who asked this nurse to notify the narrow gauge engineer. narrow gauge engineer ordered trop series, to give the fentanyl, and a nitro patch.
[2024-02-06 04:20] LABS: Troponin(5th) Baseline 2219 ng/L (0-10)
[2024-02-06 04:39] LABS: Anion Gap 14.2 (5-19); Blood Urea Nitrogen 8 mg/dL (6-20); Calcium 9.2 mg/dL (8.5-10.5); Carbon Dioxide 24 mmol/L (22-29); Chloride 104 mmol/L (98-107); Creatinine Clr Calc Pharmacy 123.2384; Glomerular Filtration Rate 104.6 mL/min (90-130); Glucose 100 mg/dL (65-115); Osmolality Calculated 284 mOsm/kg (285-295); Potassium 4.2 mmol/L (3.5-5.1); Sodium 138 mmol/L (136-145)
[2024-02-06 06:18] LABS: Troponin 5 2HR Delta -87 ABS# (0-10)
[2024-02-06 06:19] LABS: Troponin 5 2HR 2132 ng/L (0-10)
[2024-02-06] MEDS: metoprolol tartrate 25 mg Tablet PO (08:20)
[2024-02-06] MEDS: ticagrelor 90 mg Tablet PO (08:20)
--- NOTE | 2024-02-06 08:32 | P.DS_ITS ---
Discharge Providers Date of Admission: 02/04/24 18:47 Date of Discharge: February 06, 2024 Attending Provider at Admission: Jaylen Garcia M.D Attending Provider at Discharge: Jaylen Garcia M.D Primary Care Provider: YASMANI Calles Diagnoses at Discharge Discharge Diagnosis (1) STEMI (ST elevation myocardial infarction): Status: Acute (2) Essential hypertension: Status: Chronic (3) Psoriatic arthritis: Status: Acute (4) LV dysfunction: Status: Acute Reason for Visit Reason for Visit: Emergant Cath Discharge Data Studies Completed and Pending Completed Studies During Hospitalization Category Date Time Status XR chest 1V [id number] Routine Exams 02/04/24 19:53 Completed CV. echo complete* [id number] Routine Ultrasound 02/05/24 06:00 Completed Pending at discharge Category Date Time Status [employer] request for service Routine Exams 02/04/24 18:24 Taken Troponin(5th) 6 hour. Timed Lab 02/06/24 09:17 Ordered Radiology Impressions Chest X-Ray 02/04/24 19:53 IMPRESSION: No acute findings. Laboratory Results WBC 9.54 10^3/uL (3.29-11.43) 02/05/24 03:19 RBC 4.88 10^6/uL (3.85-5.65) 02/05/24 03:19 Hgb 15.60 g/dL (11.27-16.99) 02/05/24 03:19 Hct 46.7 % (36-47) 02/05/24 03:19 MCV 95.7 fl (85-98) 02/05/24 03:19 MCH 32.0 pg (27-33) 02/05/24 03:19 MCHC 33.4 g/dL (30-55) 02/05/24 03:19 RDW 13.0 % (12.1-15.1) 02/05/24 03:19 Plt Count 306 10^3/cmm (157-399) 02/05/24 03:19 MPV 9.5 fL (7.4-10.4) 02/05/24 03:19 Neut % (Auto) 78.0 % 02/05/24 03:19 Lymph % (Auto) 12.2 % 02/05/24 03:19 [place] % (Auto) 7.1 % 02/05/24 03:19 Eos % (Auto) 2.1 % 02/05/24 03:19 Baso % (Auto) 0.2 % 02/05/24 03:19 Neut # (Auto) 7.44 10^3/uL (1.8-7.7) 02/05/24 03:19 Lymph # (Auto) 1.2 10^3/uL (0.8-4.8) 02/05/24 03:19 [place] # (Auto) 0.7 10^3/uL (0.2-0.9) 02/05/24 03:19 Eos # (Auto) 0.2 10^3/uL (0.0-0.8) 02/05/24 03:19 Baso # (Auto) 0.0 10^3/uL (0.0-0.1) 02/05/24 03:19 Nucleated RBC % (auto) 0 % 02/05/24 03:19 Nucleated RBCs # 0.0 /100WBC 02/05/24 03:19 PT 12.80 SECONDS (12.1-14.9) 02/05/24 03:19 INR 0.94 (0.8-1.2) 02/05/24 03:19 Sodium 138 mmol/L (136-145) 02/06/24 03:17 Potassium 4.2 mmol/L (3.5-5.1) 02/06/24 03:17 Chloride 104 mmol/L (98-107) 02/06/24 03:17 Carbon Dioxide 24 mmol/L (22-29) 02/06/24 03:17 Anion Gap 14.2 (5-19) 02/06/24 03:17 BUN 8 mg/dL (6-20) 02/06/24 03:17 Creatinine 0.6 mg/dL (0.5-0.9) 02/06/24 03:17 GFR Calculation 104.6 mL/min (90-130) 02/06/24 03:17 Glucose 100 mg/dL (65-115) 02/06/24 03:17 POC Glucose 118 mg/dL (70-110) H 02/05/24 05:09 Estimat Average Glucose 103 02/04/24 21:07 Hemoglobin A1c 5.2 % (4.0-6.0) 02/04/24 21:07 Calculated Osmolality 284 mOsm/kg (285-295) L 02/06/24 03:17 Calcium 9.2 mg/dL (8.5-10.5) 02/06/24 03:17 Phosphorus 2.6 mg/dL (2.5-4.5) 02/05/24 03:19 Magnesium 2.0 mg/dL (1.7-2.3) 02/06/24 03:17 Total Bilirubin 0.3 mg/dL (0.15-1.2) 02/05/24 03:19 AST 187 U/L (0-32) H 02/05/24 03:19 ALT 43 U/L (0-33) H 02/05/24 03:19 Alkaline Phosphatase 91 U/L (35-105) 02/05/24 03:19 Troponin T 5th Gen ng/L 2773 ng/L (0-10) H* 02/05/24 08:33 Troponin T Baseline 2219 ng/L (0-10) H* 02/06/24 03:17 Troponin T 120 Minute 2132 ng/L (0-10) H 02/06/24 05:41 Delta Troponin T -87 ABS# (0-10) L 02/06/24 05:41 Total Protein 7.5 g/dL (6.6-8.7) 02/05/24 03:19 Albumin 4.3 g/dL (3.5-5.2) 02/05/24 03:19 Globulin 3.2 g/dL (1.3-4.6) 02/05/24 03:19 Triglycerides 122 mg/dL (0-150) 02/04/24 21:07 Cholesterol 171 mg/dL (0-200) 02/04/24 21:07 LDL Cholesterol, Calc 114 mg/dL (50-129) 02/04/24 21:07 Total VLDL Cholesterol 24 mg/dL (0-30) 02/04/24 21:07 HDL Cholesterol 33 mg/dL (60-100) L 02/04/24 21:07 Cholesterol/HDL Ratio 5.18 mg/dL (0.0-4.40) H 02/04/24 21:07 Procalcitonin 0.03 ng/mL (0-0.5) 02/04/24 21:07 TSH 1.74 uIU/mL (0.27-4.20) 02/04/24 21:07 Vitals Last Vital Signs Temp 97.7 F 02/06/24 06:00 Pulse 62 02/06/24 06:21 Resp 19 H 02/06/24 06:00 BP 118/80 02/06/24 06:00 Pulse Ox 93 02/06/24 06:00 O2 Del Method Room Air 02/06/24 00:41 Discharge Plan Discharge Patient Disposition: Home Condition: Stable Prescriptions: No Action triamcinolone acetonide 0.1 % ointment 1 applic topical BID Qty: 454 1RF Rx Instructions: Apply to affected areas twice daily for 2 weeks alternating with clobetasol clobetasol 0.05 % ointment 1 applic topical BID 14 Days Qty: 60 3RF Rx Instructions: Apply to affected area no more than 2 weeks per month, not for face or skin folds mupirocin 2 % ointment 1 applic topical BID Qty: 22 1RF Rx Instructions: Apply to affected open areas until healed epinephrine [EpiPen 2-Leonardo] 0.3 mg/0.3 mL auto-injector 0.3 mg IM Q4H PRN (Reason: anaphylaxis) Qty: 2 0RF halobetasol propion-tazarotene 0.01-0.045 % lotion 1 applic topical DAILY Qty: 100 3RF Rx Instructions: not for face triamcinolone acetonide 0.1 % ointment 1 applic topical BID Qty: 453.6 1RF Rx Instructions: apply to affected areas on trunk and extremities BID 2 weeks alternating with clobetasol prn pregabalin [Lyrica] 100 mg capsule See Rx Instructions PO BID Qty: 90 5RF Rx Instructions: take 1 in am and 2 at hs orally twice a day; (DME) CPAP and supplies See Rx Instructions .Route .MEDSUPPLY Qty: 1 0RF Rx Instructions: As directed albuterol sulfate [Ventolin HFA] 90 mcg/actuation HFA aerosol inhaler See Rx Instructions .ROUTE .COMPLEX Qty: 18 5RF Dose Instruction: INHALE 2 PUFFS BY MOUTH EVERY 6 HOURS NEEDED FOR SHORTNESS OF BREATH Rx Instructions: INHALE 2 PUFFS BY MOUTH EVERY 6 HOURS NEEDED FOR SHORTNESS OF BREATH oxybutynin chloride 10 mg tablet extended release 24hr See Rx Instructions .ROUTE .COMPLEX Qty: 90 0RF Dose Instruction: TAKE 1 TABLET BY MOUTH DAILY Rx Instructions: TAKE 1 TABLET BY MOUTH DAILY amlodipine 10 mg tablet See Rx Instructions .ROUTE .COMPLEX Qty: 90 0RF Dose Instruction: TAKE 1 TABLET BY MOUTH DAILY Rx Instructions: TAKE 1 TABLET BY MOUTH DAILY duloxetine 60 mg capsule,delayed release(DR/EC) See Rx Instructions .ROUTE .COMPLEX Qty: 60 0RF Dose Instruction: TAKE 1 CAPSULE BY MOUTH TWICE DAILY Rx Instructions: TAKE 1 CAPSULE BY MOUTH TWICE DAILY levothyroxine 112 mcg capsule 112 mcg PO DAILY Qty: 90 0RF diclofenac sodium 75 mg tablet,delayed release (DR/EC) 75 mg PO Q12H PRN (Reason: moderate to severe pain as needed) Qty: 30 1RF Renflexis 100 mg Recon Soln 10 mg IV DIRECTED Rx Instructions: Every 6 Weeks, 10mg/kg Patient Instructions: Opioid Safety Coding Level of Care Code Acute Code for [facility] Fwd Diagnoses STEMI (ST elevation myocardial infarction) I21.3 Essential hypertension I10 Psoriatic arthritis L40.50 LV dysfunction I51.9
[2024-02-06 09:57] LABS: Troponin 5 6HR 2140 ng/L (0-10)
[2024-02-06 09:58] LABS: Troponin 5 6HR Delta -79 ng/L (0-12)
--- NOTE | 2024-02-06 10:10 | PC.NURSE ---
Discharge instructions given to patient, IVs removed. Patient and belongings wheeled to private vehicle by this nurse. Accompanied by significant other. Prescriptions to pharmacy.
== END 2024-02-06 10:00 | disposition home or self-care (01) | DRG 322 ==
PROVIDERS: Internal Medicine; Admitting Provider Internal Medicine; PCP Nurse Practitioner Family; Visit Provider Internal Medicine
PROC: 027034Z Dilation of Coronary Artery, One Artery with Drug-eluting Intraluminal Device, Percutaneous Approach (ICD-10-PCS; principal; 2024-02-04 18:45)
PROC: 027034Z Dilation of Coronary Artery, One Artery with Drug-eluting Intraluminal Device, Percutaneous Approach (ICD-10-PCS; 2024-02-04 18:45)
DX: I21.02 ST elevation (STEMI) myocardial infarction involving left anterior descending coronary artery (principal); L40.50 Arthropathic psoriasis, unspecified; I10 Essential (primary) hypertension; E03.9 Hypothyroidism, unspecified; Z88.6 Allergy status to analgesic agent; M79.7 Fibromyalgia; J45.909 Unspecified asthma, uncomplicated; Z98.1 Arthrodesis status; Z87.891 Personal history of nicotine dependence; I51.9 Heart disease, unspecified; E87.6 Hypokalemia
CPT/HCPCS: 36415; 36416; 71045; 80048; 80053; 80061; 82962; 83036; 83735; 84100; 84145; 84443; 84484; 85025; 85347; 85610; 93005; 93306; 93458; 96374; 96375; 96376; 99152; 99153; C1725; C1760; C1769; C1874; C1887; C1894; C9600; G0269; J1644; J2250; J3010; J7030; Q9967

== ENCOUNTER → 2024-03-19 14:44 | Outpatient (BNVA) | payer BC, SELFPAY | PROVIDERS: PCP Nurse Practitioner Family; Visit Provider Internal Medicine Rheumatology | DX: R74.8 Abnormal levels of other serum enzymes (principal); Z79.899 Other long term (current) drug therapy; M79.7 Fibromyalgia; L40.0 Psoriasis vulgaris | CPT/HCPCS: 36415; 80076; 82565; 85025; 85651; 86140 ==

== ENCOUNTER 2024-03-20 12:51 | Oncology outpatient (recurring) (ONCR) | payer BC, SELFPAY ==
[2024-03-07] VITALS (7 sets, daily range): BP systolic 104–116; BP diastolic 71–79; PULSE 53–64; RESP 14–17; TEMP 35.8–36.6; O2SAT 92–99
[2024-03-07] MEDS: acetaminophen 325 mg Tablet 650 MG PO (13:24)
[2024-03-07] MEDS: diphenhydrAMINE 50 mg/mL SDV 1mL 25 MG IVP (13:25)
[2024-03-07] MEDS: methylPREDNISolone sod succ 40 mg/mL INJ IVP (13:26)
[2024-03-07] MEDS: sodium chloride 0.9% 250 ML 75 ML IV (13:26)
[2024-03-07] MEDS: infliximab-abda 800 MG in sodium chloride 0.9% 250 ML 10 MG IV (14:00)
--- NOTE | 2024-03-20 12:45 | USCV_ITS ---
Richelle Valle Age: 54 Gender: F : 1970 Exam Date: 03/20/2024 13:15 Ordering Phys: Joana Silverio Technologist: Exam Location[place] [facility] [place] Indication: hx of mi stent BP: 106 / 74 HR: Rhythm: Sinus Technical Quality: Adequate MEASUREMENTS (Male / Female) Normal Values 2D ECHO LV Diastolic Diameter PLAX 4.2 cm 4.2 - 5.9 / 3.9 - 5.3 cm IVS Diastolic Thickness 1.6 cm 0.6 - 1.0 / 0.6 - 0.9 cm IVS Systolic Thickness 2.2 cm LVPW Diastolic Thickness 1.3 cm 0.6 - 1.0 / 0.6 - 0.9 cm LVPW Systolic Thickness 1.8 cm LVOT Diameter 1.8 cm LV Ejection Fraction 2D Teich 63.8 % LV Ejection Fraction MOD 4C 78.5 % LV Ejection Fraction MOD 2C 70.7 % LV Ejection Fraction 2C AL 68.8 % LA Diameter 3.8 cm RA Systolic Volume 4C AL 34.6 ml RA Systolic Volume 4C MOD 33.4 ml Aorta at Sinotubular Diameter 2.5 cm M-MODE LA Ao Ratio MM 0.9 AV Cusp Separation MM 2.1 cm FINDINGS Left Ventricle Normal left ventricular size and systolic function, EF 78%. No regional wall motion abnormalities. Mild left ventricular hypertrophy. Right Ventricle Normal right ventricular size and systolic function. Right Atrium The right atrium is normal in size. Left Atrium Mildly increased left atrial size. Mitral Valve No gross abnormalities noted Aortic Valve No gross abnormalities noted Tricuspid Valve No gross abnormalities noted Pulmonic Valve Pulmonic valve not well visualized. Pericardium Normal pericardium without effusion. Aorta Normal aortic annulus size. IVC Normal inferior vena cava. CONCLUSIONS Normal left ventricular size and systolic function, EF 78%. No regional wall motion abnormalities. Mild left ventricular hypertrophy. Mildly increased left atrial size. There is no pericardial effusion. There are no intracardiac masses. Compared to the study from 02/05/2024, there is significant improvement in the LV ejection fraction(from 35 - 40% to 78%) Dr Yudy Andrew MD [facility] (Electronically Signed) Final Date: 24 March 2024 10:58 S
== END 2024-03-31 23:59 | disposition home or self-care (01) ==
LOC: RAD 12:51 → ONCMED 03-22 16:32
PROVIDERS: PCP Nurse Practitioner Family; Visit Provider Nurse Practitioner Family
DX: I21.3 ST elevation (STEMI) myocardial infarction of unspecified site (principal); I51.7 Cardiomegaly
CPT/HCPCS: 93308; 96375; 96413; 96415; A4222; J1200; J2919; J7050; Q5104

== ENCOUNTER 2024-04-18 08:00 | Oncology outpatient (recurring) (ONCR) | payer BC, MEDICAID, SELFPAY ==
[2024-04-18] VITALS (8 sets, daily range): BP systolic 107–122; BP diastolic 64–82; PULSE 54–68; RESP 16–18; TEMP 35.9–37.1; O2SAT 91–99; BMI 35.3
[2024-04-18] MEDS: sodium chloride 0.9% 250 ML 75 ML IV (08:35)
[2024-04-18] MEDS: acetaminophen 325 mg Tablet 650 MG PO (08:35)
[2024-04-18] MEDS: diphenhydrAMINE 50 mg/mL SDV 1mL 25 MG IVP (08:35)
[2024-04-18] MEDS: methylPREDNISolone sod succ 40 mg/mL INJ IVP (08:41)
[2024-04-18] MEDS: infliximab-abda 800 MG in sodium chloride 0.9% 250 ML 10 MG IV (09:32)
== END 2024-04-30 23:59 | disposition home or self-care (01) ==
PROVIDERS: PCP Nurse Practitioner Family; Visit Provider Nurse Practitioner Family
DX: Z79.899 Other long term (current) drug therapy; L40.50 Arthropathic psoriasis, unspecified
CPT/HCPCS: 96375; 96413; 96415; A4222; J1200; J2919; J7050; Q5104

== ENCOUNTER 2024-05-30 09:08 | Oncology outpatient (recurring) (ONCR) | payer BC, MEDICAID, SELFPAY ==
[2024-05-30 09:54] LABS: Basophils % 0.3 %; Eosinophils # 0.2 10^3/uL (0.0-0.8); Eosinophils % 2.8 %; Hematocrit 41.3 % (36-47); Lymphocytes # 1.2 10^3/uL (0.8-4.8); Mean Corpuscular HGB Conc 32.4 g/dL (30-55); Mean Corpuscular Hemoglobin 32.1 pg (27-33); Mean Platelet Volume 9.3 fL (7.4-10.4); Monocytes # 0.3 10^3/uL (0.2-0.9); Monocytes % 5.9 %; Neutrophils # 4.11 10^3/uL (1.8-7.7); Neutrophils % 70.7 %; Nucleated Red Blood Cells % 0 %; Platelet Count 292 10^3/cmm (157-399); Red Blood Count 4.17 10^6/uL (3.85-5.65); Red Cell Distribution Width 13.2 % (12.1-15.1); White Blood Count 5.81 10^3/uL (3.29-11.43)
[2024-05-30] MEDS: diphenhydrAMINE 50 mg/mL SDV 1mL 25 MG IVP (10:11)
[2024-05-30] MEDS: acetaminophen 325 mg Tablet 650 MG PO (10:11)
[2024-05-30] MEDS: sodium chloride 0.9% 250 ML 75 ML IV (10:12)
[2024-05-30] MEDS: methylPREDNISolone sod succ 40 mg/mL INJ IVP (10:12)
[2024-05-30 10:13] VITALS: BP 121/56; PULSE 60; RESP 18; TEMP 36.1; O2SAT 96
[2024-05-30 10:14] LABS: Alanine Aminotransferase 19 U/L (0-33); Albumin Level 4.2 g/dL (3.5-5.2); Alkaline Phosphatase 86 U/L (35-105); Aspartate Amino Transferase 24 U/L (0-32); Blood Urea Nitrogen 11 mg/dL (6-20); Calcium 8.9 mg/dL (8.5-10.5); Carbon Dioxide 28 mmol/L (22-29); Chloride 102 mmol/L (98-107); Globulin 3.1 g/dL (1.3-4.6); Glomerular Filtration Rate 104.2 mL/min (90-130); Glucose 90 mg/dL (65-115); Osmolality Calculated 285 mOsm/kg (285-295); Sodium 138 mmol/L (136-145); Total Bilirubin 0.4 mg/dL (0.15-1.2); Total Protein 7.3 g/dL (6.6-8.7)
[2024-05-30] MEDS: infliximab-abda 800 MG in sodium chloride 0.9% 250 ML 10 MG IV (11:24)
[2024-05-30 11:31] VITALS: BP 125/78; PULSE 52; RESP 17; TEMP 36.2; O2SAT 93
[2024-05-30 11:44] VITALS: BP 132/85; PULSE 48; RESP 16; TEMP 35.8; O2SAT 90
[2024-05-30 13:09] VITALS: BP 151/98; PULSE 75; RESP 16; TEMP 36.3; O2SAT 90
[2024-05-30 15:55] VITALS: BP 126/82; PULSE 60; RESP 18; TEMP 36.1; O2SAT 97
== END 2024-05-31 23:59 | disposition home or self-care (01) ==
PROVIDERS: Internal Medicine Rheumatology; PCP Nurse Practitioner Family; Visit Provider Nurse Practitioner Family
DX: L40.50 Arthropathic psoriasis, unspecified (principal); Z79.899 Other long term (current) drug therapy
CPT/HCPCS: 80053; 85025; 86140; 96375; 96413; 96415; A4222; J1200; J2919; J7050; Q5104

== ENCOUNTER 2024-07-11 09:00 | Oncology outpatient (recurring) (ONCR) | payer BC, MEDICAID, SELFPAY ==
[2024-07-11 09:16] VITALS: BP 133/83; PULSE 77; RESP 18; TEMP 36.7; O2SAT 96
[2024-07-11] MEDS: acetaminophen 325 mg Tablet 650 MG PO (09:30)
[2024-07-11] MEDS: diphenhydrAMINE 50 mg/mL SDV 1mL 25 MG IVP (09:31)
[2024-07-11] MEDS: methylPREDNISolone sod succ 40 mg/mL INJ IVP (09:32)
[2024-07-11] MEDS: sodium chloride 0.9% 250 ML 75 ML IV (09:32)
[2024-07-11 09:39] LABS: Basophils % 0.3 %; Eosinophils # 0.2 10^3/uL (0.0-0.8); Eosinophils % 2.7 %; Lymphocytes # 1.2 10^3/uL (0.8-4.8); Lymphocytes % 20.5 %; Mean Corpuscular HGB Conc 33.3 g/dL (30-55); Mean Corpuscular Hemoglobin 32.7 pg (27-33); Mean Corpuscular Volume 98.3 fl (85-98); Mean Platelet Volume 9.5 fL (7.4-10.4); Monocytes # 0.5 10^3/uL (0.2-0.9); Monocytes % 7.7 %; Neutrophils # 3.98 10^3/uL (1.8-7.7); Neutrophils % 68.3 %; Nucleated Red Blood Cells % 0 %; Platelet Count 256 10^3/cmm (157-399); Red Blood Count 4.07 10^6/uL (3.85-5.65); White Blood Count 5.84 10^3/uL (3.29-11.43)
[2024-07-11 09:55] LABS: Alanine Aminotransferase 19 U/L (0-33); Albumin Level 3.9 g/dL (3.5-5.2); Alkaline Phosphatase 81 U/L (35-105); Aspartate Amino Transferase 30 U/L (0-32); C Reactive Protein 24.7 mg/L (0.0-4.9); Glomerular Filtration Rate 128.6 mL/min (90-130); Total Bilirubin 0.5 mg/dL (0.15-1.2); Total Protein 6.9 g/dL (6.6-8.7)
[2024-07-11] MEDS: infliximab-abda 800 MG in sodium chloride 0.9% 250 ML 300 MG IV (09:56)
[2024-07-11 11:09] VITALS: BP 125/85; PULSE 58; RESP 16; TEMP 36; O2SAT 97
== END 2024-07-31 23:59 | disposition home or self-care (01) ==
PROVIDERS: Internal Medicine Rheumatology; PCP Nurse Practitioner Family; Visit Provider Nurse Practitioner Family
DX: L40.50 Arthropathic psoriasis, unspecified (principal); Z79.899 Other long term (current) drug therapy
CPT/HCPCS: 80076; 82565; 85025; 86140; 96375; 96413; A4222; J1200; J2919; J7050; Q5104

== ENCOUNTER 2024-10-17 15:49 | Emergency (ER) | payer BC, MEDICAID, SELFPAY ==
[2024-10-17 15:50] VITALS: BMI 35.7
--- NOTE | 2024-10-17 15:50 | ECG_ITS ---
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 Measurements Intervals [place] Rate: 57 P: 53 CA: 146 QRS: -24 QRSD: 86 T: 75 QT: 385 QTc: 376 Interpretive Statements SINUS BRADYCARDIA LOW QRS VOLTAGE IN PRECORDIAL LEADS [QRS DEFLECTION < 1.0 mV IN CHEST LEADS] SEPTAL MYOCARDIAL INFARCTION , OF INDETERMINATE AGE [40+ ms Q WAVE IN V1/V2] Compared to ECG 02/06/2024 02:42:09 Sinus rhythm no longer present Left-axis deviation no longer present Myocardial infarct finding still present Electronically Signed On 10-17-2024 21:59:25 CDT by Yudy Andrew M.D. [email or web address]
[2024-10-17 15:55] VITALS: BP 161/89; PULSE 84; RESP 23; TEMP 36.8; O2SAT 96
--- NOTE | 2024-10-17 16:02 | XRR_ITS ---
PROCEDURE INFORMATION: Exam: XR Chest Exam date and time: 10/17/2024 4:22 PM Age: 54 years old Clinical indication: Pain; Chest pressure; Additional info: Cp TECHNIQUE: Imaging protocol: Radiologic exam of the chest. Views: 1 view. COMPARISON: CR XR chest 1V [id number] 02/04/2024 9:54 PM FINDINGS: Lungs: Unremarkable. No consolidation. Pleural spaces: Unremarkable. No pleural effusion. No pneumothorax. Heart/Mediastinum: Mild cardiomegaly, stable. Bones/joints: Unremarkable. XR/XR chest 1V portable [id number] IMPRESSION: No acute cardiopulmonary process.
--- NOTE | 2024-10-17 16:03 | W.ED.CHESTPA ---
Documented by User: AUSTIN Juarez 10/17/24 18:05 HPI - Chest Pain General: Chief Complaint: Nausea/Vomiting/Diarrhea Stated Complaint: Chest Pain Time Seen by Provider: 10/17/24 15:54 Source: patient Mode of arrival: EMS Limitations: no limitations History of Present Illness: This patient is a 54-year-old female with a past medical history of STEMI, hypertension, hyperlipidemia, and hypothyroid who was brought in by ambulance due to chest pain beginning this morning. Patient had originally presented to her primary care's office where she had complaints of chest pressure associated with nausea, vomiting, and diaphoresis, stating that these were similar symptoms with her prior STEMI last year. At that time had a stent placed, has been on Brilinta. States that the pressure has been constant since this morning, where she was not significantly exerting herself and noticed onset of pain radiating to her right shoulder. For this she does not report any history of gallbladder issues and states the pain did not come after eating. She does note that she has been sick the past few days, and the pain did seem to come on after multiple episodes of vomiting, denies any hematemesis. States that this time her nausea and vomiting has subsided, though she can still feel the chest pressure occasionally that is mild. At this time though states she is asymptomatic. She is not associating pain with any shortness of breath or palpitations. She does not note any specific alleviating or exacerbating factors. No temporal pattern noted with this pain. States that her blood pressure has been running high recently, she saw her model and dye person yesterday and states that she had her dose of metoprolol as well as her dose of atorvastatin increased. MD complaint: chest pain Pertinent past history: prior [place] and [employer] Onset (ago): hour(s) Timing of current episode: constant Onset: during rest Pain location: substernal Pain radiation: right shoulder Severity: mild Quality: other (Pressure) Relieving factors: nothing Exacerbating factors: nothing Context: recent illness Associated symptoms: Reports diaphoresis, nausea and vomiting; Deny abdominal pain, dyspnea, fever(s) or palpitations Risk Factors: Coronary artery disease risk factors: smoking history, hyperlipidemia and hypertension Thoracic aortic dissection risk factors: none Related Data Home Medications ?Medication ?Instructions ?Recorded ?Confirmed atorvastatin 80 mg tablet 80 mg PO DAILY 10/17/24 10/17/24 calcium carbonate (Tums) 600 mg PO BID 10/17/24 10/17/24 losartan 25 mg tablet 25 mg PO DAILY 10/17/24 10/17/24 Previous Rx's ?Medication ?Instructions ?Recorded halobetasol propionate 0.01 1 applic topical DAILY #100 grams 03/29/22 %-tazarotene 0.045 % lotion triamcinolone acetonide 0.1 % 1 applic topical BID #453.6 grams 03/29/22 topical ointment clobetasol 0.05 % topical ointment 1 applic topical BID 2 weeks #60 07/12/22 grams epinephrine 0.3 mg/0.3 mL 0.3 mg (0.3 mL) IM Q4H PRN 09/27/22 injection, auto-injector (EpiPen anaphylaxis #2 ea 2-Leonardo) CPAP and supplies #1 ea 01/05/23 ticagrelor 90 mg tablet (Brilinta) 90 mg PO BID #180 tabs 02/06/24 Cpap machine #1 ea 04/23/24 pregabalin 100 mg capsule (Lyrica) See Rx Instructions PO BID #90 caps 07/16/24 albuterol sulfate 90 mcg/actuation 2 inh inhalation Q8H PRN shortness 07/19/24 aerosol inhaler of breath or wheezing #6.7 grams guselkumab 100 mg/mL subcutaneous 100 mg SUBCUT .[id number] #1 mL 08/27/24 syringe (Tremfya) levothyroxine 112 mcg capsule 112 mcg PO DAILY #90 caps 09/20/24 oxybutynin chloride 10 mg See Rx Instructions .Route 09/20/24 tablet,extended release 24 hr .COMPLEX #90 tabs duloxetine 60 mg capsule,delayed See Rx Instructions .Route 10/16/24 release .COMPLEX #60 ea metoprolol succinate 25 mg 25 mg PO DAILY #90 tabs 10/16/24 tablet,extended release 24 hr Allergies Allergy/AdvReac Type Severity Reaction Status Date / Time aspirin Allergy unknown Verified 10/17/24 15:02 latex Allergy unknown Verified 10/17/24 15:02 pantoprazole (From Protonix) Allergy ADR-Nausea Verified 10/17/24 15:02 peanut Allergy ALGY-Hives Verified 10/17/24 15:02 tofacitinib (From Xeljanz) AdvReac Intermediate nausea and Verified 10/17/24 15:02 vomiting Review of Systems General: Reports: 10 or more systems reviewed and unremarkable except in HPI and below Const: Reports: diaphoresis; Denies: fever(s), chills or fatigue Eyes: Denies: change in vision ENMT: Denies: throat pain, ear or mastoid pain or nasal discharge Card: Reports: chest pain; Denies: palpitations, swelling of feet/ankles or lightheadedness Resp: Denies: dyspnea, productive cough or wheezing GI: Reports: nausea and vomiting; Denies: abdominal pain, diarrhea or constipation : Denies: flank pain, difficulty voiding, dysuria or urinary frequency Musc: Denies: neck pain, back pain or joint pain Skin/Breast: Denies: rash Neuro: Denies: headache(s), numbness in extremities or weakness in extremities PFSH ED PFSH: Medical History STEMI (ST elevation myocardial infarction) STEMI (ST elevation myocardial infarction) RLQ abdominal pain Colon cancer screening Breast cancer screening by mammogram Vitamin D deficiency Hypertension screen Acute bacterial sinusitis Fibromyalgia Nail pitting Dactylitis of finger Immunization counseling High risk medication use Plaque psoriasis Hypothyroidism, acquired Mild asthma Essential hypertension Psoriasis Psoriatic arthritis Surgical History History of spinal fusion 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 Social History Smoking and tobacco/nicotine status: former use of tobacco/nicotine Physical Exam Const: COMMON NORMALS: no acute distress, patient oriented x3 and no limitations GENERAL APPEARANCE: cooperative, comfortable and well developed ORIENTATION/CONSCIOUSNESS: Yes awake, Yes oriented to person, Yes oriented to place and Yes oriented to time HENMT: COMMON NORMALS: normocephalic, atraumatic and hearing grossly normal bilaterally HEAD & SCALP: normocephalic and atraumatic Eye: COMMON NORMALS: Equal, round and reactive pupils present, EOMs intact bilaterally and conjunctivae normal CONJUNCTIVA: Yes conjunctivae normal PUPIL: Yes Equal, round and reactive pupils present Neck/C-Spine: COMMON NORMALS: full ROM, supple and no JVD Resp: COMMON NORMALS: normal respiratory effort, No retractions, No use of accessory muscles and clear to auscultation bilaterally AUSCULTATION: clear to auscultation bilaterally Cardio: COMMON NORMALS: no JVD, regular rate, regular rhythm, No clicks present (Cardio), No murmurs present (Cardio) and No rub (Cardio) RATE: regular rate RHYTHM: regular rhythm GI: COMMON NORMALS: Normal to inspection, nondistended, normoactive bowel sounds present, Soft to palpation and non-tender AUSCULTATION: Yes normoactive bowel sounds PALPATION: Yes Soft to palpation RECTAL EXAM: deferred OTHER: Negative Lee sign Extremity: COMMON NORMALS: normal to inspection, full ROM and capillary refill normal Neuro: COMMON NORMALS: patient oriented x3, moves all extremities, no focal motor deficits and no sensory deficits noted SENSORIUM/ORIENTATION: Yes oriented to person, Yes oriented to place and Yes oriented to time Psych: COMMON NORMALS: mental status grossly normal and Normal thought process present THOUGHT PROCESS: Normal thought process present Skin: COMMON NORMALS: no rashes or lesions noted GENERAL SKIN EXAM: no rashes or lesions noted Course Vital Signs: Vital signs: Vital Signs Temperature 98.3 F 10/17/24 15:55 Pulse Rate 77 10/17/24 18:14 Respiratory Rate 23 H 10/17/24 15:55 Blood Pressure 162/82 10/17/24 18:14 Pulse Oximetry 100 10/17/24 18:14 Oxygen Delivery Me thod Room Air 10/17/24 15:55 MDM - Chest Pain Medical Decision Making Patient presented by ambulance for chest pressure, was sent from primary care's office. There was concern of ACS as patient has a history of STEMI last year requiring a stent placement, had similar symptoms at that time. On arrival patient chest pain-free, still feeling a little bit nauseous. Does note the pain started after vomiting this morning and has been overall sick the past few days. Physical exam was unremarkable, there was no positive testing for gallbladder etiology on exam. All of her lab work unremarkable. This included a negative troponin. Her chest x-ray was unremarkable and EKG did not show any acute findings. Heart score of 4-5 due to her risk factors and history, I spoke with hospitalist, Dr. Goodman, to discuss admission of the patient for observation for telemetry and ACS rule out. Dr. Goodman had kindly accepted the patient, however after speaking with the patient she is refusing admission and wants to go home due to her normal initial labs. I discussed with her that we could monitor her and make sure that her pain does not come back, states that she wants to go home and follow-up as an outpatient. We did give her a GI cocktail prior to discharge and she states that this made her symptoms essentially go away, making me think that this is GERD versus gastritis. Ultimately she did verbalize understanding to return precautions. I briefly discussed this patient's case with Dr. Keenan here in the ED who agrees with disposition. Lab Data 10/17/24 16:42 10/17/24 16:42 Radiology Impressions Chest X-Ray 10/17/24 16:02 IMPRESSION: No acute cardiopulmonary process. Laboratory Results WBC 5.40 10^3/uL (3.29-11.43) 10/17/24 16:42 RBC 4.74 10^6/uL (3.85-5.65) 10/17/24 16:42 Hgb 15.20 g/dL (11.27-16.99) 10/17/24 16:42 Hct 45.7 % (36-47) 10/17/24 16:42 MCV 96.4 fl (85-98) 10/17/24 16:42 MCH 32.1 pg (27-33) 10/17/24 16:42 MCHC 33.3 g/dL (30-55) 10/17/24 16:42 RDW 13.6 % (12.1-15.1) 10/17/24 16:42 Plt Count 304 10^3/cmm (157-399) 10/17/24 16:42 MPV 9.2 fL (7.4-10.4) 10/17/24 16:42 Neut % (Auto) 72.7 % 10/17/24 16:42 Lymph % (Auto) 18.7 % 10/17/24 16:42 [place] % (Auto) 4.1 % 10/17/24 16:42 Eos % (Auto) 3.9 % 10/17/24 16:42 Baso % (Auto) 0.2 % 10/17/24 16:42 Neut # (Auto) 3.93 10^3/uL (1.8-7.7) 10/17/24 16:42 Lymph # (Auto) 1.0 10^3/uL (0.8-4.8) 10/17/24 16:42 [place] # (Auto) 0.2 10^3/uL (0.2-0.9) 10/17/24 16:42 Eos # (Auto) 0.2 10^3/uL (0.0-0.8) 10/17/24 16:42 Baso # (Auto) 0.0 10^3/uL (0.0-0.1) 10/17/24 16:42 Nucleated RBC % (auto) 0 % 10/17/24 16:42 Nucleated RBCs # 0.0 /100WBC 10/17/24 16:42 Sodium 145 mmol/L (136-145) 10/17/24 16:42 Potassium 4.3 mmol/L (3.5-5.1) 10/17/24 16:42 Chloride 106 mmol/L (98-107) 10/17/24 16:42 Carbon Dioxide 26 mmol/L (22-29) 10/17/24 16:42 Anion Gap 17.3 (5-19) 10/17/24 16:42 BUN 13 mg/dL (6-20) 10/17/24 16:42 Creatinine 0.5 mg/dL (0.5-0.9) 10/17/24 16:42 GFR Calculation 128.6 mL/min (90-130) 10/17/24 16:42 Glucose 92 mg/dL (65-115) 10/17/24 16:42 Calculated Osmolality 300 mOsm/kg (285-295) H 10/17/24 16:42 Calcium 10.2 mg/dL (8.5-10.5) 10/17/24 16:42 Total Bilirubin 0.4 mg/dL (0.15-1.2) 10/17/24 16:42 AST 25 U/L (0-32) 10/17/24 16:42 ALT 18 U/L (0-33) 10/17/24 16:42 Alkaline Phosphatase 82 U/L (35-105) 10/17/24 16:42 Troponin T Baseline < 6 ng/L (0-10) 10/17/24 16:42 Total Protein 7.0 g/dL (6.6-8.7) 10/17/24 16:42 Albumin 4.4 g/dL (3.5-5.2) 10/17/24 16:42 Globulin 2.6 g/dL (1.3-4.6) 10/17/24 16:42 Lipase 29 U/L (13-60) 10/17/24 16:42 Urine Color Yellow (Yellow) 10/17/24 16:59 Urine Appearance Clear (CLEAR) 10/17/24 16:59 Urine pH 5.5 (5-7) 10/17/24 16:59 Ur Specific [place] 1.016 (1.005-1.030) 10/17/24 16:59 Urine Protein Negative (Negative) 10/17/24 16:59 Urine Glucose (UA) Negative (Normal) 10/17/24 16:59 Urine Ketones Negative (Negative) 10/17/24 16:59 Urine Blood Negative (Negative) 10/17/24 16:59 Urine Nitrate Negative (Negative) 10/17/24 16:59 Urine Bilirubin Negative (Negative) 10/17/24 16:59 Urine Urobilinogen 0.2 mg/dL (Negative) 10/17/24 16:59 Ur Leukocyte Esterase Negative (Negative) 10/17/24 16:59 Urine RBC 0-2 /hpf (0-2) 10/17/24 16:59 Urine WBC 0-5 /hpf (0-5) 10/17/24 16:59 Ur Squamous Epith Cells 0-5 /hpf (0-5) 10/17/24 16:59 Amorphous Sediment Not Reportable 10/17/24 16:59 Urine Bacteria None seen /hpf (NONE) 10/17/24 16:59 Hyaline Casts 0.40 /lpf 10/17/24 16:59 Influenza A (PCR) Negative (Negative) 10/17/24 16:06 Influenza Type B (PCR) Negative (Negative) 10/17/24 16:06 RSV (PCR) Negative (Negative) 10/17/24 16:06 SARS-CoV-2 (PCR) Negative (Negative) 10/17/24 16:06 XR interpretation done by ED provider, pending radiology final review ED provider radiology interpretation(s): No apparent acute cardiopulmonary process. Discharge Plan Discharge Patient Disposition: Home Clinical Impression: Chest pain Qualifiers: Chest pain type: unspecified Qualified Code(s): R07.9 - Chest pain, unspecified Condition: Stable Prescriptions: No Action clobetasol 0.05 % ointment 1 applic topical BID 14 Days Qty: 60 3RF Rx Instructions: Apply to affected area no more than 2 weeks per month, not for face or skin folds epinephrine [EpiPen 2-Leonardo] 0.3 mg/0.3 mL auto-injector 0.3 mg IM Q4H PRN (Reason: anaphylaxis) Qty: 2 0RF pregabalin [Lyrica] 100 mg capsule See Rx Instructions PO BID Qty: 90 5RF Rx Instructions: take 1 in am and 2 at hs orally twice a day; metoprolol succinate 25 mg tablet extended release 24 hr 25 mg PO DAILY Qty: 90 3RF halobetasol propion-tazarotene 0.01-0.045 % lotion 1 applic topical DAILY Qty: 100 3RF Rx Instructions: not for face triamcinolone acetonide 0.1 % ointment 1 applic topical BID Qty: 453.6 1RF Rx Instructions: apply to affected areas on trunk and extremities BID 2 weeks alternating with clobetasol prn (DME) Cpap machine See Rx Instructions .Route .MEDSUPPLY Qty: 1 0RF Rx Instructions: 6-16 cm CPAP titration (DME) CPAP and supplies See Rx Instructions .Route .MEDSUPPLY Qty: 1 0RF Rx Instructions: As directed albuterol sulfate 90 mcg/actuation HFA aerosol inhaler 2 inh inhalation Q8H PRN (Reason: shortness of breath or wheezing) Qty: 6.7 0RF Tremfya 100 mg/mL syringe 100 mg SUBCUT .T6Aprmc Qty: 1 5RF levothyroxine 112 mcg capsule 112 mcg PO DAILY Qty: 90 0RF oxybutynin chloride 10 mg tablet extended release 24hr See Rx Instructions .ROUTE .COMPLEX Qty: 90 0RF Dose Instruction: TAKE 1 TABLET BY MOUTH DAILY Rx Instructions: TAKE 1 TABLET BY MOUTH DAILY duloxetine 60 mg capsule,delayed release(DR/EC) See Rx Instructions .ROUTE .COMPLEX Qty: 60 0RF Dose Instruction: Take 1 capsule by mouth twice daily Rx Instructions: Take 1 capsule by mouth twice daily atorvastatin 80 mg tablet 80 mg PO DAILY losartan 25 mg tablet 25 mg PO DAILY Tums 300 mg (750 mg) Tablet,Chewable 600 mg PO BID Brilinta 90 mg Tablet 90 mg PO BID Qty: 180 3RF Discharge Orders: Discharge ED (Routine); Ordered 10/17/24 Ordered By: Bienvenido Dickson Referrals: Kristin Brumfield FNP [Primary Care Provider] - Patient Instructions: Chest Pain (ED) Activity Restrictions/Additional Instructions: May take [id number] Pepcid or other antacids. Please call your model and dye person in the morning to schedule a follow-up appointment, and also follow-up with your regular doctor. Please return with any recurrence of the chest pain, or any other concerns that you have. Continue taking your home medications as prescribed. Print Language: Estonian Coding Level of Care Code ED Computer Console Operator for Chg Fwd Documented by User: Garcia Bradford DO 10/18/24 06:25 HPI - Chest Pain General: Chief Complaint: Nausea/Vomiting/Diarrhea Stated Complaint: Chest Pain Time Seen by Provider: 10/17/24 15:54 Related Data Home Medications ?Medication ?Instructions ?Recorded ?Confirmed atorvastatin 80 mg tablet 80 mg PO DAILY 10/17/24 10/17/24 calcium carbonate (Tums) 600 mg PO BID 10/17/24 10/17/24 losartan 25 mg tablet 25 mg PO DAILY 10/17/24 10/17/24 Previous Rx's ?Medication ?Instructions ?Recorded halobetasol propionate 0.01 1 applic topical DAILY #100 grams 03/29/22 %-tazarotene 0.045 % lotion triamcinolone acetonide 0.1 % 1 applic topical BID #453.6 grams 03/29/22 topical ointment clobetasol 0.05 % topical ointment 1 applic topical BID 2 weeks #60 07/12/22 grams epinephrine 0.3 mg/0.3 mL 0.3 mg (0.3 mL) IM Q4H PRN 09/27/22 injection, auto-injector (EpiPen anaphylaxis #2 ea 2-Leonardo) CPAP and supplies #1 ea 01/05/23 ticagrelor 90 mg tablet (Brilinta) 90 mg PO BID #180 tabs 02/06/24 Cpap machine #1 ea 04/23/24 pregabalin 100 mg capsule (Lyrica) See Rx Instructions PO BID #90 caps 07/16/24 albuterol sulfate 90 mcg/actuation 2 inh inhalation Q8H PRN shortness 07/19/24 aerosol inhaler of breath or wheezing #6.7 grams guselkumab 100 mg/mL subcutaneous 100 mg SUBCUT .S2Tiguq #1 mL 08/27/24 syringe (Tremfya) levothyroxine 112 mcg capsule 112 mcg PO DAILY #90 caps 09/20/24 oxybutynin chloride 10 mg See Rx Instructions .Route 09/20/24 tablet,extended release 24 hr .COMPLEX #90 tabs duloxetine 60 mg capsule,delayed See Rx Instructions .Route 10/16/24 release .COMPLEX #60 ea metoprolol succinate 25 mg 25 mg PO DAILY #90 tabs 10/16/24 tablet,extended release 24 hr Allergies Allergy/AdvReac Type Severity Reaction Status Date / Time aspirin Allergy unknown Verified 10/17/24 15:02 latex Allergy unknown Verified 10/17/24 15:02 pantoprazole (From Protonix) Allergy ADR-Nausea Verified 10/17/24 15:02 peanut Allergy ALGY-Hives Verified 10/17/24 15:02 tofacitinib (From Xeljanz) AdvReac Intermediate nausea and Verified 10/17/24 15:02 vomiting PFSH ED PFSH: Medical History STEMI (ST elevation myocardial infarction) STEMI (ST elevation myocardial infarction) RLQ abdominal pain Colon cancer screening Breast cancer screening by mammogram Vitamin D deficiency Hypertension screen Acute bacterial sinusitis Fibromyalgia Nail pitting Dactylitis of finger Immunization counseling High risk medication use Plaque psoriasis Hypothyroidism, acquired Mild asthma Essential hypertension Psoriasis Psoriatic arthritis Surgical History History of spinal fusion 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 Social History Smoking and tobacco/nicotine status: former use of tobacco/nicotine Course Vital Signs: Vital signs: Vital Signs Temperature 98.3 F 10/17/24 15:55 Pulse Rate 77 10/17/24 18:14 Respiratory Rate 23 H 10/17/24 15:55 Blood Pressure 162/82 10/17/24 18:14 Pulse Oximetry 100 10/17/24 18:14 Oxygen Delivery Me thod Room Air 10/17/24 15:55 MDM - Chest Pain Medical Decision Making Patient presented by ambulance for chest pressure, was sent from primary care's office. There was concern of ACS as patient has a history of STEMI last year requiring a stent placement, had similar symptoms at that time. On arrival patient chest pain-free, still feeling a little bit nauseous. Does note the pain started after vomiting this morning and has been overall sick the past few days. Physical exam was unremarkable, there was no positive testing for gallbladder etiology on exam. All of her lab work unremarkable. This included a negative troponin. Her chest x-ray was unremarkable and EKG did not show any acute findings. Heart score of 4-5 due to her risk factors and history, I spoke with hospitalist, Dr. Goodman, to discuss admission of the patient for observation for telemetry and ACS rule out. Dr. Goodman had kindly accepted the patient, however after speaking with the patient she is refusing admission and wants to go home due to her normal initial labs. I discussed with her that we could monitor her and make sure that her pain does not come back, states that she wants to go home and follow-up as an outpatient. We did give her a GI cocktail prior to discharge and she states that this made her symptoms essentially go away, making me think that this is GERD versus gastritis. Ultimately she did verbalize understanding to return precautions. I briefly discussed this patient's case with Dr. Keenan here in the ED who agrees with disposition. Chart reviewed Lab Data 10/17/24 16:42 10/17/24 16:42 Radiology Impressions Chest X-Ray 10/17/24 16:02 IMPRESSION: No acute cardiopulmonary process. Laboratory Results WBC 5.40 10^3/uL (3.29-11.43) 10/17/24 16:42 RBC 4.74 10^6/uL (3.85-5.65) 10/17/24 16:42 Hgb 15.20 g/dL (11.27-16.99) 10/17/24 16:42 Hct 45.7 % (36-47) 10/17/24 16:42 MCV 96.4 fl (85-98) 10/17/24 16:42 MCH 32.1 pg (27-33) 10/17/24 16:42 MCHC 33.3 g/dL (30-55) 10/17/24 16:42 RDW 13.6 % (12.1-15.1) 10/17/24 16:42 Plt Count 304 10^3/cmm (157-399) 10/17/24 16:42 MPV 9.2 fL (7.4-10.4) 10/17/24 16:42 Neut % (Auto) 72.7 % 10/17/24 16:42 Lymph % (Auto) 18.7 % 10/17/24 16:42 [place] % (Auto) 4.1 % 10/17/24 16:42 Eos % (Auto) 3.9 % 10/17/24 16:42 Baso % (Auto) 0.2 % 10/17/24 16:42 Neut # (Auto) 3.93 10^3/uL (1.8-7.7) 10/17/24 16:42 Lymph # (Auto) 1.0 10^3/uL (0.8-4.8) 10/17/24 16:42 [place] # (Auto) 0.2 10^3/uL (0.2-0.9) 10/17/24 16:42 Eos # (Auto) 0.2 10^3/uL (0.0-0.8) 10/17/24 16:42 Baso # (Auto) 0.0 10^3/uL (0.0-0.1) 10/17/24 16:42 Nucleated RBC % (auto) 0 % 10/17/24 16:42 Nucleated RBCs # 0.0 /100WBC 10/17/24 16:42 Sodium 145 mmol/L (136-145) 10/17/24 16:42 Potassium 4.3 mmol/L (3.5-5.1) 10/17/24 16:42 Chloride 106 mmol/L (98-107) 10/17/24 16:42 Carbon Dioxide 26 mmol/L (22-29) 10/17/24 16:42 Anion Gap 17.3 (5-19) 10/17/24 16:42 BUN 13 mg/dL (6-20) 10/17/24 16:42 Creatinine 0.5 mg/dL (0.5-0.9) 10/17/24 16:42 GFR Calculation 128.6 mL/min (90-130) 10/17/24 16:42 Glucose 92 mg/dL (65-115) 10/17/24 16:42 Calculated Osmolality 300 mOsm/kg (285-295) H 10/17/24 16:42 Calcium 10.2 mg/dL (8.5-10.5) 10/17/24 16:42 Total Bilirubin 0.4 mg/dL (0.15-1.2) 10/17/24 16:42 AST 25 U/L (0-32) 10/17/24 16:42 ALT 18 U/L (0-33) 10/17/24 16:42 Alkaline Phosphatase 82 U/L (35-105) 10/17/24 16:42 Troponin T Baseline < 6 ng/L (0-10) 10/17/24 16:42 Total Protein 7.0 g/dL (6.6-8.7) 10/17/24 16:42 Albumin 4.4 g/dL (3.5-5.2) 10/17/24 16:42 Globulin 2.6 g/dL (1.3-4.6) 10/17/24 16:42 Lipase 29 U/L (13-60) 10/17/24 16:42 Urine Color Yellow (Yellow) 10/17/24 16:59 Urine Appearance Clear (CLEAR) 10/17/24 16:59 Urine pH 5.5 (5-7) 10/17/24 16:59 Ur Specific [place] 1.016 (1.005-1.030) 10/17/24 16:59 Urine Protein Negative (Negative) 10/17/24 16:59 Urine Glucose (UA) Negative (Normal) 10/17/24 16:59 Urine Ketones Negative (Negative) 10/17/24 16:59 Urine Blood Negative (Negative) 10/17/24 16:59 Urine Nitrate Negative (Negative) 10/17/24 16:59 Urine Bilirubin Negative (Negative) 10/17/24 16:59 Urine Urobilinogen 0.2 mg/dL (Negative) 10/17/24 16:59 Ur Leukocyte Esterase Negative (Negative) 10/17/24 16:59 Urine RBC 0-2 /hpf (0-2) 10/17/24 16:59 Urine WBC 0-5 /hpf (0-5) 10/17/24 16:59 Ur Squamous Epith Cells 0-5 /hpf (0-5) 10/17/24 16:59 Amorphous Sediment Not Reportable 10/17/24 16:59 Urine Bacteria None seen /hpf (NONE) 10/17/24 16:59 Hyaline Casts 0.40 /lpf 10/17/24 16:59 Influenza A (PCR) Negative (Negative) 10/17/24 16:06 Influenza Type B (PCR) Negative (Negative) 10/17/24 16:06 RSV (PCR) Negative (Negative) 10/17/24 16:06 SARS-CoV-2 (PCR) Negative (Negative) 10/17/24 16:06 Discharge Plan Discharge Patient Disposition: Home Clinical Impression: Chest pain Qualifiers: Chest pain type: unspecified Qualified Code(s): R07.9 - Chest pain, unspecified Condition: Stable Prescriptions: No Action clobetasol 0.05 % ointment 1 applic topical BID 14 Days Qty: 60 3RF Rx Instructions: Apply to affected area no more than 2 weeks per month, not for face or skin folds epinephrine [EpiPen 2-Leonardo] 0.3 mg/0.3 mL auto-injector 0.3 mg IM Q4H PRN (Reason: anaphylaxis) Qty: 2 0RF pregabalin [Lyrica] 100 mg capsule See Rx Instructions PO BID Qty: 90 5RF Rx Instructions: take 1 in am and 2 at hs orally twice a day; metoprolol succinate 25 mg tablet extended release 24 hr 25 mg PO DAILY Qty: 90 3RF halobetasol propion-tazarotene 0.01-0.045 % lotion 1 applic topical DAILY Qty: 100 3RF Rx Instructions: not for face triamcinolone acetonide 0.1 % ointment 1 applic topical BID Qty: 453.6 1RF Rx Instructions: apply to affected areas on trunk and extremities BID 2 weeks alternating with clobetasol prn (DME) Cpap machine See Rx Instructions .Route .MEDSUPPLY Qty: 1 0RF Rx Instructions: 6-16 cm CPAP titration (DME) CPAP and supplies See Rx Instructions .Route .MEDSUPPLY Qty: 1 0RF Rx Instructions: As directed albuterol sulfate 90 mcg/actuation HFA aerosol inhaler 2 inh inhalation Q8H PRN (Reason: shortness of breath or wheezing) Qty: 6.7 0RF Tremfya 100 mg/mL syringe 100 mg SUBCUT .F1[place] Qty: 1 5RF levothyroxine 112 mcg capsule 112 mcg PO DAILY Qty: 90 0RF oxybutynin chloride 10 mg tablet extended release 24hr See Rx Instructions .ROUTE .COMPLEX Qty: 90 0RF Dose Instruction: TAKE 1 TABLET BY MOUTH DAILY Rx Instructions: TAKE 1 TABLET BY MOUTH DAILY duloxetine 60 mg capsule,delayed release(DR/EC) See Rx Instructions .ROUTE .COMPLEX Qty: 60 0RF Dose Instruction: Take 1 capsule by mouth twice daily Rx Instructions: Take 1 capsule by mouth twice daily atorvastatin 80 mg tablet 80 mg PO DAILY losartan 25 mg tablet 25 mg PO DAILY Tums 300 mg (750 mg) Tablet,Chewable 600 mg PO BID Brilinta 90 mg Tablet 90 mg PO BID Qty: 180 3RF Discharge Orders: Discharge ED (Routine); Ordered 10/17/24 Ordered By: Bienvenido Dickson Referrals: Kristin Brumfield FNP [Primary Care Provider] - Patient Instructions: Chest Pain (ED) Activity Restrictions/Additional Instructions: May take [id number] Pepcid or other antacids. Please call your model and dye person in the morning to schedule a follow-up appointment, and also follow-up with your regular doctor. Please return with any recurrence of the chest pain, or any other concerns that you have. Continue taking your home medications as prescribed. Print Language: Estonian Coding Level of Care Code ED Computer Console Operator for Ish Yanes
[2024-10-17 16:49] LABS: Influenza A NEGATIVE (Negative); Influenza B NEGATIVE (Negative); Respiratory Syncytial Virus Ce NEGATIVE (Negative); SARS-CoV-2 PCR NEGATIVE (Negative)
[2024-10-17 16:55] LABS: Basophils % 0.2 %; Eosinophils # 0.2 10^3/uL (0.0-0.8); Eosinophils % 3.9 %; Hematocrit 45.7 % (36-47); Lymphocytes % 18.7 %; Mean Corpuscular HGB Conc 33.3 g/dL (30-55); Mean Corpuscular Hemoglobin 32.1 pg (27-33); Mean Corpuscular Volume 96.4 fl (85-98); Mean Platelet Volume 9.2 fL (7.4-10.4); Monocytes # 0.2 10^3/uL (0.2-0.9); Monocytes % 4.1 %; Neutrophils # 3.93 10^3/uL (1.8-7.7); Neutrophils % 72.7 %; Nucleated Red Blood Cells % 0 %; Platelet Count 304 10^3/cmm (157-399); Red Blood Count 4.74 10^6/uL (3.85-5.65); Red Cell Distribution Width 13.6 % (12.1-15.1)
[2024-10-17 17:05] LABS: Bilirubin Urine Negative (Negative); Blood Urine Negative (Negative); Glucose Urine UA Negative (Normal); Ketones Urine Negative (Negative); Leukocyte Esterase Urine Negative (Negative); Nitrate Urine Negative (Negative); Protein Urine Negative (Negative); Specific Gravity, Urine 1.016 (1.005-1.030); Urine Appearance Clear (CLEAR); Urine Color Yellow (Yellow); Urobilinogen Urine 0.2 mg/dL (Negative); pH Urine 5.5 (5-7)
[2024-10-17 17:07] LABS: Add Urine Microscopic? YES; Bacteria Urine None Seen /hpf; RBC Urine 0-2 /hpf (0-2); Squamous Epithelial Cell Urine 0-5 /hpf (0-5); WBC Urine 0-5 /hpf (0-5)
[2024-10-17 17:29] LABS: Alanine Aminotransferase 18 U/L (0-33); Albumin Level 4.4 g/dL (3.5-5.2); Alkaline Phosphatase 82 U/L (35-105); Anion Gap 17.3 (5-19); Aspartate Amino Transferase 25 U/L (0-32); Blood Urea Nitrogen 13 mg/dL (6-20); Calcium 10.2 mg/dL (8.5-10.5); Carbon Dioxide 26 mmol/L (22-29); Chloride 106 mmol/L (98-107); Creatinine Clr Calc Pharmacy 148.6545; Globulin 2.6 g/dL (1.3-4.6); Glomerular Filtration Rate 128.6 mL/min (90-130); Glucose 92 mg/dL (65-115); Lipase 29 U/L (13-60); Osmolality Calculated 300 mOsm/kg (285-295); Potassium 4.3 mmol/L (3.5-5.1); Sodium 145 mmol/L (136-145); Total Bilirubin 0.4 mg/dL (0.15-1.2)
[2024-10-17 17:29] LABS: Add Urine Culture? No
--- NOTE | 2024-10-17 17:34 | ECG_ITS ---
[employer] Test Date: 2024-10-17 Pat Name: Richelle Valle Department: Room: Gender: Female Safe Technician: : 1970 Requested By: Bienvenido Stewart Order Number: [id number] Yue MD: Yudy Andrew M.D. Measurements Intervals [place] Rate: 55 P: 56 NH: 150 QRS: -14 QRSD: 87 T: 80 QT: 413 QTc: 395 Interpretive Statements SINUS BRADYCARDIA SEPTAL MYOCARDIAL INFARCTION , OF INDETERMINATE AGE [40+ ms Q WAVE IN V1/V2] Compared to ECG 10/17/2024 15:50:57 No significant changes Electronically Signed On 10-17-2024 22:13:09 CDT by Yudy Andrew M.D. [email or web address]
[2024-10-17 17:38] LABS: Troponin(5th) Baseline < 6 ng/L (0-10)
[2024-10-17] MEDS: lidocaine 2% viscous 15 ML, aluminum-mag hydrox-simethicon 30 ML, sucralfate oral liq 1 GM PO (18:07)
[2024-10-17] MEDS: ondansetron 2 mg/ML SDV 2 mL 4 MG IVP (18:07)
[2024-10-17 18:14] VITALS: BP 162/82; PULSE 77; O2SAT 100
== END 2024-10-17 18:15 | disposition home or self-care (01) ==
PROVIDERS: Emergency Provider Physician Assistant; PCP Nurse Practitioner Family
DX: R07.9 Chest pain, unspecified (principal); Z11.52 Encounter for screening for COVID-19; Z87.891 Personal history of nicotine dependence; I10 Essential (primary) hypertension; E78.5 Hyperlipidemia, unspecified
CPT/HCPCS: 36415; 71045; 80053; 81001; 83690; 84484; 85025; 87637; 93005; 96374; 99285; J2405; J9999

== ENCOUNTER 2024-11-02 09:04 | Outpatient (CLI) | payer BC, MEDICAID, SELFPAY ==
--- NOTE | 2024-11-02 09:15 | US_ITS ---
WS: [id number] RIGHT UPPER QUADRANT ULTRASOUND HISTORY: R10.9 - Unspecified abdominal pain COMPARISON: None available. Liver: 15.7 cm in length. Normal size liver and echogenicity. No bile duct dilatation or mass. Portal Vein: Normal hepatopetal flow with monophasic waveform. Gallbladder: Normally distended gallbladder with no stones or wall thickening. CBD: 0.4 cm Pancreas: Normal size and echogenicity. Right kidney: 10.1 cm in length. Normal size and echogenicity. No hydronephrosis or mass. Aorta and IVC: Unremarkable abdominal aorta and IVC. No ascites. US/US gall bladder [id number] IMPRESSION: Normal right upper quadrant ultrasound.
== END 2024-11-02 09:05 | disposition home or self-care (01) ==
LOC: RAD 09:05
PROVIDERS: PCP Nurse Practitioner Family; Visit Provider Nurse Practitioner Family
DX: R10.9 Unspecified abdominal pain (principal)
CPT/HCPCS: 76705

== ENCOUNTER → 2025-02-06 09:15 | Outpatient (BNVA) | payer MEDICARE, MEDICAID, SELFPAY | PROVIDERS: PCP Nurse Practitioner Family; Visit Provider Internal Medicine | DX: I10 Essential (primary) hypertension (principal); E55.9 Vitamin D deficiency, unspecified; Z13.6 Encounter for screening for cardiovascular disorders; Z79.899 Other long term (current) drug therapy; E03.9 Hypothyroidism, unspecified; L40.50 Arthropathic psoriasis, unspecified; L40.9 Psoriasis, unspecified | CPT/HCPCS: 82533; 84305; 84439; 84443 ==

== ENCOUNTER 2025-02-20 15:43 | Outpatient (CLI) | payer MEDICARE, MEDICAID, SELFPAY ==
[2025-02-20 17:55] LABS: Creatinine 24 Hour Urine 1298.5 mg/dL (601-1689); Total Volume Urine 1225 ml
== END 2025-02-20 15:44 | disposition home or self-care (01) ==
LOC: LAB 15:45
PROVIDERS: PCP Nurse Practitioner Family; Visit Provider Internal Medicine
DX: I10 Essential (primary) hypertension (principal); E55.9 Vitamin D deficiency, unspecified; Z13.6 Encounter for screening for cardiovascular disorders; Z79.899 Other long term (current) drug therapy; E03.9 Hypothyroidism, unspecified; L40.50 Arthropathic psoriasis, unspecified; L40.9 Psoriasis, unspecified
CPT/HCPCS: 82384; 82530; 82570; 83497

== ENCOUNTER → 2025-02-21 09:49 | Outpatient (BNVA) | payer MEDICARE, MEDICAID, SELFPAY | PROVIDERS: PCP Nurse Practitioner Family; Visit Provider Internal Medicine | DX: E06.3 Autoimmune thyroiditis (principal); I10 Essential (primary) hypertension | CPT/HCPCS: 99214 ==

== ENCOUNTER → 2025-07-11 08:09 | Outpatient (BNVA) | payer MEDICARE, MEDICAID, SELFPAY | PROVIDERS: PCP Nurse Practitioner Family; Visit Provider Nurse Practitioner Family | DX: I10 Essential (primary) hypertension (principal); Z79.899 Other long term (current) drug therapy; L60.8 Other nail disorders | CPT/HCPCS: 80053; 80061; 84443 ==